=== PATIENT | male | born 1965 | race African-American/Black ===

== ENCOUNTER 2016-08-13 14:13 | Observation (INO) | payer BC, OTHER ==
[2016-08-13] MEDS ORDERED: ONDANSETRON *ODT* 4 MG TABLET SL ONE (15:11)
[2016-08-13] MEDS ORDERED: HYDROmorphone HCL CARPU-JECT 1 MG/1 ML DISP.SYRIN IVPUSH ONE (15:11)
[2016-08-13] MEDS ORDERED: HYDROmorphone HCL CARPU-JECT 2 MG/1 ML DISP.SYRIN IVPUSH ONE ×2 (15:15→16:43)
[2016-08-13] MEDS ORDERED: ONDANSETRON 8 MG TABLET (FP) PO ONE (15:24)
[2016-08-13] MEDS ORDERED: HYDROmorphone HCL CARPU-JECT 2 MG/1 ML DISP.SYRIN ONE ×2 (15:24→16:56)
[2016-08-13 15:36] LABS: BASOPHIL 0.4 % (0-2.0); EOSINOPHIL 1.5 % (0-4.5); MCH 28.1 pg (25.7-33.7); MCHC 32.9 g/dl (32.0-35.9); MEAN CELL VOLUME 85.5 fl (80-96); MEAN PLT VOLUME 9.2 fl (7.5-11.1); NEUTROPHILS 45.2 % (42.8-82.8); PLATELET COUNT 214 K/MM3 (134-434); RDW 14.2 % (11.9-15.9); WHITE BLOOD COUNT 5.7 K/mm3 (4.0-10.0)
[2016-08-13 15:47] LABS: INR 1.18 (0.82-1.09)
--- NOTE | 2016-08-13 15:50 | PDOC ---
History of Present Illness - General Chief Complaint: Pain Stated Complaint: PAIN Time Seen by Provider: 08/13/16 14:56 - History of Present Illness Initial Comments: 08/13/16 16:46 CHIEF COMPLAINT: pain s/p hernia repair HISTORY OF PRESENT ILLNESS: 51 yo M with PMH diverticulitis, CAD, HTN and HLD, s /p umbilical and inguinal hernia repair presents ED with 10/10 pain to R groin. Patient states he had his surgery done last year at [facility] Dr. Recio and 2-3 weeks ago he started feeling the pain but was able to relieve the pain with Tylenol or Motrin. He reports seeing his PCP MD Kilgore on 5 days ago and was referred to outpatient surgery with MD Lee but has not been able to get an appointment. He states that now the pain is unbearable and he cannot touch it. He reports nausea "but I can't get myself to throw it up." No recent travel or sick contacts. PAST MEDICAL HISTORY: Denies past medical history FAMILY HISTORY: Denies SOCIAL HISTORY:Denies tobacco, alcohol, illicit drug use. SURGICAL HISTORY: Denies ALLERGIES: Reglan REVIEW OF SYSTEMS General/Constitutional: Denies fever or chills. Denies weakness, weight change. HEENT: Denies change in vision. Denies ear pain or discharge. Denies sore throat. Cardiovascular: Denies chest pain or shortness of breath. Respiratory: Denies cough, wheezing, or hemoptysis. Gastrointestinal: Denies nausea, vomiting, diarrhea or constipation. Denies rectal bleeding. Genitourinary: Pain to R groin. Denies dysuria, frequency, or change in urination. Musculoskeletal: Denies joint or muscle swelling or pain. Denies neck or back pain. Skin and breasts: Denies rash or easy bruising. PHYSICAL EXAM General Appearance: Uncomfortable-appearing, appropriately dressed. . HEENT: EOMI, PERRLA, normal ENT inspection, normal voice, TMs normal, pharynx normal. No conjunctival pallor. No photophobia, scleral icterus. Respiratory/Chest: Lungs CTAB. Cardiovascular: RRR. S1, S2. Vascular Pulses: Dorsalis-Pedis (R): 2+, Dorsalis-Pedis (L): 2+ Gastrointestinal/Abdominal: Distended abdomen with marked diffuse tenderness. Genitourinary: Marked tenderness to R groin and scrotum. No induration, erythema. Cremasteric reflex intact. Lymphatic: No adenopathy, tenderness. Musculoskeletal/Extremities: Normal inspection. FROM of all extremities, normal capillary refill. Pelvis Stable. No CVA tenderness. No tenderness to extremities, pedal edema, swelling, erythema or deformity. Integumentary: Appropriate color, dry, warm. 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 Fully oriented, alert. Appropriate mood/affect. Motor strength 5/5. No appreciable EOM palsy, facial droop or sensory deficit. 08/13/16 16:47 08/13/16 17:55 Past History - Past Medical History Allergies/Adverse Reactions: Allergies Allergy/AdvReac Type Severity Reaction Status Date / Time metoclopramide HCl Allergy Mild Verified 08/13/16 14:20 [From [facility]] Home Medications: Ambulatory Orders Atorvastatin Ca [Lipitor] 40 mg PO HS 08/24/14 Hydrochlorothiazide [Hctz -] 25 mg PO DAILY 08/24/14 Omeprazole [Prilosec] 40 mg PO DAILY 08/24/14 Oxycodone HCl/Acetaminophen [Percocet 7.5-325 mg Tablet] 1 - 2 tab PO Q4H Propranolol HCl [Inderal Xl] 80 mg PO HS 08/24/14 Telmisartan 80 mg PO DAILY 08/14/16 Acetaminophen [Tylenol .Regular Strength -] 325 mg PO Q4H PRN #0 tablet Aspirin [ASA -] 81 mg PO DAILY tab.chew 08/15/16 Anemia: No Asthma: No Cancer: No Cardiac Disorders: Yes (CAD) CVA: No COPD: No CHF: No Dementia: No Diabetes: No GI Disorders: Yes (diverticulitis) Disorders: No HTN: Yes Hypercholesterolemia: Yes Liver Disease: No Suicide Attempt (Hx): No Seizures: No Thyroid Disease: No - Surgical History Abdominal Surgery: Yes (COLON RESECTION) Appendectomy: Yes - Immunization History Td Vaccination: Yes - Psycho/Social/Smoking Cessation Hx Anxiety: No Suicidal Ideation: No Smoking Status: No Smoking History: Never smoked Have you smoked in the past 12 months: No Number of Cigarettes Smoked Daily: 0 Information on smoking cessation initiated: No Hx Alcohol Use: No Drug/Substance Use Hx: No Substance Use Type: None Hx Substance Use Treatment: No *Physical Exam - Vital Signs Last Vital Signs Temp Pulse Resp BP Pulse Ox 98.3 F 96 H 18 190/124 100 08/13/16 14:20 08/13/16 14:20 08/13/16 14:20 08/13/16 14:20 08/13/16 14:20 ED Treatment Course - LABORATORY CBC & Chemistry Diagram: 08/14/16 06:48 08/14/16 06:48 - RADIOLOGY Radiology Studies Ordered: Category Date Time Status ABDOMEN & PELVIS CT WITH CONTR [CT] Stat CT Scan 08/13/16 15:10 Ordered Medical Decision Making - Medical Decision Making 08/13/16 16:51 51 yo M with PMH diverticulitis, CAD, HTN and HLD, s/p umbilical and inguinal hernia repair presents ED with 10/10 pain to R groin. Patient seen and evaluated by attending MD Romeo. Concern for incarcerated hernia. -CBC, CMP, PT/INR -Abdomen & Pelvis CT with contrast Labs unremarkable. Awaiting CT. 08/13/16 18:54 Case discussed in detail with oncoming emergency provider including history, physical exam and ancillary studies. In brief, this patient is being seen in the ED for a chief complaint of: I have completed the initial assessment interview note and have ordered the following labs: CBC, CMP, PT/INR I have reviewed the following results: labs Pending results: CT Please call the PCP: Jame Plan for disposition as follows: pending, likely admit Oncoming NPA Serafin has assumed care for the patient and will complete the evaluation and treatment. *DC/Admit/Observation/Transfer Diagnosis at time of Disposition: Abdominal pain Qualifiers: Abdominal location: periumbilical Qualified Code(s): R10.33 - Periumbilical pain - Discharge Dispostion Disposition: HOME Condition at time of disposition: Improved
[2016-08-13 16:07] LABS: ALBUMIN 3.8 g/dl (3.4-5.0); ALK PHOS 74 U/L (45-117); ANION GAP 10 (8-16); BILIRUBIN,TOTAL 0.2 mg/dL (0.2-1.0); CALCIUM 9.8 mg/dL (8.5-10.1); CO2 28 mmol/L (21-32); COCKROFT - GAULT 113.39; CREATININE 1.2 mg/dL (0.7-1.3); GLUCOSE,RANDOM 109 mg/dL (74-106); SGOT/AST 20 U/L (15-37); SGPT/ALT 46 U/L (12-78); TOT PROT 8.1 g/dl (6.4-8.2)
--- NOTE | 2016-08-13 19:50 | PDOC ---
*Physical Exam - Vital Signs Last Vital Signs Temp Pulse Resp BP Pulse Ox 98.3 F 82 19 150/105 95 08/13/16 14:20 08/13/16 18:42 08/13/16 18:42 08/13/16 18:42 08/13/16 18:42 ED Treatment Course - LABORATORY CBC & Chemistry Diagram: 08/13/16 15:15 08/13/16 15:21 - ADDITIONAL ORDERS Additional order review: Laboratory Results 08/13/16 08/13/16 15:21 15:21 INR 1.18 H Sodium 142 Potassium 3.8 Chloride 104 Carbon Dioxide 28 Anion Gap 10 BUN 16 D Creatinine 1.2 Creat Clearance w eGFR > 60 Random Glucose 109 H Calcium 9.8 Total Bilirubin 0.2 AST 20 ALT 46 D Alkaline Phosphatase 74 Total Protein 8.1 Albumin 3.8 08/13/16 15:15 RBC 5.26 MCV 85.5 MCHC 32.9 RDW 14.2 MPV 9.2 Neutrophils % 45.2 Lymphocytes % 42.5 H Monocytes % 10.4 H Eosinophils % 1.5 Basophils % 0.4 - Medications Given in the ED: ED Medications Discontinued Medications Generic Name Dose Route Start Last Admin Trade Name Freq PRN Reason Stop Dose Admin Hydromorphone HCl 0.5 mg 08/13/16 15:11 08/13/16 15:45 Dilaudid Injection - IVPUSH 08/13/16 15:12 Not Given ONCE ONE Hydromorphone HCl 2 mg 08/13/16 15:15 08/13/16 15:30 Dilaudid Injection - IVPUSH 08/13/16 15:16 2 mg ONCE ONE Administration Hydromorphone HCl 2 mg 08/13/16 16:43 08/13/16 17:15 Dilaudid Injection - IVPUSH 08/13/16 16:44 2 mg ONCE ONE Administration Ondansetron HCl 8 mg 08/13/16 15:11 08/13/16 15:35 Zofran Odt - SL 08/13/16 15:12 8 mg ONCE ONE Administration Progress Note - Progress Note Progress Note: 1945hrs: Called Dr Rebecca Kilgore /pt's PMD [phone]/ Dr. Barton is covering 1954hrs: Dr. Mccracken/covering Dr. Barton... will admit 2002hrs: Spoke to Dr. Parmar/surgery. Pt is to call the office on Tuesday. This was signed out from [facility] Rose Marie Jimenes This is a 51-year-old male who presents to the emergency department complaining of periumbilical and right groin discomfort 3 weeks. Patient states the pain has increased over the past 5 days. Pain is described as 10/10 sharp nonradiating intermittent discomfort. The pain is exacerbated when coughing and bearing down. The pain is alleviated minimally at rest. Patient denies any fever , nausea/vomiting, fever/chills, flank pains, chest pain, shortness of breath, bladder or bowel dysfunction's. *DC/Admit/Observation/Transfer Diagnosis at time of Disposition: Abdominal pain Qualifiers: Abdominal location: periumbilical Qualified Code(s): R10.33 - Periumbilical pain - Discharge Dispostion Condition at time of disposition: Stable Admit: Yes - Referrals Referrals: John Kilgore MD [Primary Care Provider] -
[2016-08-13] MEDS ORDERED: morphine CARPU-JECT 2 MG/1 ML DISP.SYRIN IVPUSH ONE (21:45)
[2016-08-13] MEDS ORDERED: morphine CARPU-JECT 2 MG/1 ML DISP.SYRIN ONE (22:18)
[2016-08-13] MEDS ORDERED: ONDANSETRON 4 MG/2 ML VIAL IVPB PRN (23:41)
[2016-08-13] MEDS ORDERED: [UNRECOGNIZED DRUG - OTHER] PO SCH (23:45)
[2016-08-13] MEDS ORDERED: ACETAMINOPHEN PO SCH (23:45)
[2016-08-13] MEDS ORDERED: D5-1/2NS+10 MEQ KCL - 1,000 ML IV SCH (23:45)
[2016-08-13] MEDS ORDERED: OXYCODONE HCL PO SCH (23:45)
[2016-08-14] MEDS: HYDROmorphone HCL CARPU-JECT 1 MG/1 ML DISP.SYRIN IVPB PRN ×5 (00:10→23:05)
[2016-08-14 08:38] LABS: BASOPHIL 0.5 % (0-2.0); EOSINOPHIL 1.2 % (0-4.5); MCH 28.4 pg (25.7-33.7); MCHC 33.2 g/dl (32.0-35.9); MEAN CELL VOLUME 85.5 fl (80-96); MEAN PLT VOLUME 8.8 fl (7.5-11.1); PLATELET COUNT 202 K/MM3 (134-434); WHITE BLOOD COUNT 6.1 K/mm3 (4.0-10.0)
[2016-08-14 09:01] LABS: ALBUMIN 3.4 g/dl (3.4-5.0); ANION GAP 7 (8-16); CALCIUM 9.3 mg/dL (8.5-10.1); CO2 31 mmol/L (21-32); COCKROFT - GAULT 2.97; GLUCOSE,RANDOM 102 mg/dL (74-106); SGOT/AST 19 U/L (15-37); SGPT/ALT 38 U/L (12-78)
[2016-08-14 09:04] LABS: ALK PHOS 64 U/L (45-117); BILIRUBIN,TOTAL 0.2 mg/dL (0.2-1.0); TOT PROT 7.1 g/dl (6.4-8.2)
[2016-08-14] MEDS: ASPIRIN 81 MG CHEWABLE TABLETS PO SCH (09:24)
[2016-08-14] MEDS: oxyCODONE HCL 5 MG TABLET PO PRN ×2 (09:24→18:54)
[2016-08-14] MEDS: HYDROCHLOROTHIAZIDE 25 MG TABLET (FP) PO SCH (09:25)
[2016-08-14] MEDS: ACETAMINOPHEN 325 MG TABLET (FP) PO PRN ×2 (09:25→18:54)
[2016-08-14] MEDS: PANTOPRAZOLE 40 MG TABLET (FP) PO SCH (09:25)
[2016-08-14] MEDS ORDERED: TELMISARTAN 80 MG PO SCH (14:30)
[2016-08-14] MEDS: VALSARTAN 160 MG TABLET (UD) PO SCH (16:55)
--- NOTE | 2016-08-14 17:37 | HP ---
Admitting History and Physical - Admission Chief Complaint: Rt Groin Pain while coughing for past 3 wks History of Present Illness: 51 yrs old pleasant man obese H/o HTN, GERD, Dyslipedemia, Diverticulitis s/p partial Colon resection, and Rt sided Hernia repair around 6 months ago present with Rt lower quadrant pain radiates to Rt scrotum , 8/10, episodic increases with coughing and straining, started after a severe bout of coughing, remained cont, patient contacted operating surgeon but couldn't get a an appointment, on the day of admission pain worsened so came to Ed for evaluation, patient denies any fever, chills, nausea, vomiting dysuria, constipation, diarrhea or obstupation, Ct abd in the Ed shows post Op Rt Inguinal hernia, no obstruction or acute abdominal pathology, considering ongoing pain admitted for observation , today patient feels improved able pss flatus, last BM was yesterday. 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 [employer] History of Recent Travel: No Home Medications - Allergies Allergies/Adverse Reactions: Allergies Allergy/AdvReac Type Severity Reaction Status Date / Time metoclopramide HCl Allergy Mild Verified 08/13/16 14:20 [From Reglan] - Home Medications Home Medications: Ambulatory Orders Aspirin [ASA -] 81 mg PO DAILY 08/24/14 Atorvastatin Ca [Lipitor] 40 mg PO HS 08/24/14 Hydrochlorothiazide [Hctz -] 25 mg PO DAILY 08/24/14 Omeprazole [Prilosec] 40 mg PO DAILY 08/24/14 Oxycodone HCl/Acetaminophen [Percocet 7.5-325 mg Tablet] 1 - 2 tab PO Q4H Propranolol HCl [Inderal Xl] 80 mg PO HS 08/24/14 Telmisartan 80 mg PO DAILY 08/14/16 Family Disease History - Family Disease History Family Disease History: Other: Mother (diverticulitis, HTN) Review of Systems - Review of Systems Constitutional: reports: Malaise Eyes: reports: No Symptoms HENT: reports: No Symptoms Neck: reports: No Symptoms Cardiovascular: reports: No Symptoms. denies: Chest Pain, Edema, Palpitations Respiratory: reports: No Symptoms. denies: Cough, Exercise Intolerance Gastrointestinal: reports: Abdominal Pain, Nausea. denies: Constipation, Diarrhea, Rectal Bleeding Genitourinary: reports: Testicular Pain. denies: Dysuria, Flank Pain Musculoskeletal: reports: No Symptoms. denies: Back Pain Neurological: reports: No Symptoms. denies: Change in Speech, Confusion Endocrine: reports: No Symptoms. denies: Excessive Sweating, Flushing Hematology/Lymphatic: reports: No Symptoms Psychiatric: reports: No Symptoms. denies: Anxiety Pain Intensity: 8 Physical Examination Vital Signs: Vital Signs Temperature 98.4 F 08/14/16 14:38 Pulse Rate 70 08/14/16 14:38 Respiratory Rate 18 08/14/16 14:38 Blood Pressure 149/86 08/14/16 14:38 O2 Sat by Pulse Oximetry (%) 96 08/14/16 15:20 Findings/Remarks: P Exam; Middle aged man not in acute distress HEENT: MM moist, no anemia, PERRLA EOMI NECK; No JVD , no Bruit, trachea central CHEST: Non tender, CTA B/L CVS; S1S2 R no m/g/r ABD: Obese, no obvious distention, tender Rt Inguinal area extended along Rt Spermatic cord till scrotal sac and testes, normally placed testes in scrotum, no scrotal swelling or inflammation. EXT: No edema feet, no calf tenderness, Pulses +2 B/L LE WHEEL SETTER: AOx3 non focal, normal reflexes no motor sensory deficit. DERM: Normal Psych; Emotionally stable denies any anxiety or Depression. Labs: CBC, BMP 08/14/16 06:48 08/14/16 06:48 Imaging - Results Cat Scan: Report Reviewed (Abd and Pelvis; Post Op changes No acute chnages, no obstruction No acute abdominal pr Pelvic finding) EKG: Image Reviewed Problem List - Problems (1) Abdominal pain Assessment/Plan: of unknown etiology Ct abdomen shows no acute pathology, considering tenderneess along spermatic cord will order ultrasound scrotum and groin, pain control, surgery consult is called from the ED Code(s): R10.9 - UNSPECIFIED ABDOMINAL PAIN Qualifiers: Abdominal location: periumbilical Qualified Code(s): R10.33 - Periumbilical pain (2) HTN (hypertension) Assessment/Plan: Well controlled Cont home meds, HCTZ 12.5 mg and Telmisartan 80 mg daily. Code(s): I10 - ESSENTIAL (PRIMARY) HYPERTENSION (3) Hyperlipidemia Assessment/Plan: Cont Lipitor F/U Lipid panel as pout patient Code(s): E78.5 - HYPERLIPIDEMIA, UNSPECIFIED (4) Diverticulosis Assessment/Plan: No active issue Code(s): K57.90 - DVRTCLOS OF INTEST, PART UNSP, W/O PERF OR ABSCESS W/O BLEED (5) GERD (gastroesophageal reflux disease) Assessment/Plan: on PPI Code(s): K21.9 - GASTRO-ESOPHAGEAL REFLUX DISEASE WITHOUT ESOPHAGITIS
[2016-08-14] MEDS ORDERED: ATORVASTATIN CA 40 MG TABLET (FP) PO SCH (22:00)
[2016-08-14] MEDS ORDERED: PT OWN MED DRAWER 7, Y5N ONE (22:45)
[2016-08-15] MEDS ORDERED: PT OWN MED DRAWER 7, Y5N ONE (09:11)
[2016-08-15] MEDS: ASPIRIN 81 MG CHEWABLE TABLETS PO SCH (09:13)
[2016-08-15] MEDS: HYDROCHLOROTHIAZIDE 25 MG TABLET (FP) PO SCH (09:14)
[2016-08-15] MEDS: VALSARTAN 160 MG TABLET (UD) PO SCH (09:15)
[2016-08-15] MEDS: PANTOPRAZOLE 40 MG TABLET (FP) PO SCH (09:15)
[2016-08-15] MEDS: HYDROmorphone HCL CARPU-JECT 1 MG/1 ML DISP.SYRIN IVPB PRN (09:16)
[2016-08-15 11:56] VITALS: BP 152/82; PULSE 66; TEMP 98.1
--- NOTE | 2016-08-15 12:24 | DS ---
Physical Examination Vital Signs: Vital Signs Temperature 98.1 F 08/15/16 09:10 Pulse Rate 66 08/15/16 09:10 Respiratory Rate 16 08/15/16 09:10 Blood Pressure 152/82 08/15/16 09:10 O2 Sat by Pulse Oximetry (%) 97 08/15/16 07:00 Findings/Remarks: 51 yrs old man with H/O HTN, Obesity, Diverticulosis, Rt Inguinal and Ventral hernia repair admitted with 3 wks H/O RT inguinal pain radiates to Rt scrotum are no clinical sign of obstruction, CBc, BMP, CT abdomen are unremarkable, Scrotal ultrasound smal hydrocoele no torsion, symptoms improved, tolerating PO , passing flatus , patient has regular BM this am. Patient has all meds at home no need for prescription. Patient will F/u with Dr Kilgore. Dr. Vivek Lee on Tuesday ED arrange the appointment. Constitutional: Yes: Well Nourished, No Distress, Calm Eyes: Yes: WNL, Conjunctiva Clear, EOM Intact HENT: Yes: WNL, Atraumatic, Normocephalic Neck: Yes: WNL, Supple, Trachea Midline Cardiovascular: Yes: WNL, Regular Rate and Rhythm Respiratory: Yes: WNL, Regular, CTA Bilaterally Gastrointestinal: Yes: WNL, Normal Bowel Sounds Musculoskeletal: Yes: WNL Extremities: Yes: WNL Edema: No Integumentary: Yes: WNL Neurological: Yes: WNL, Alert, Oriented ...Motor Strength: WNL Psychiatric: Yes: WNL Labs: CBC, BMP 08/14/16 06:48 08/14/16 06:48 Discharge Summary Reason For Visit: ABDOMINAL PAIN All Active Problems Abdominal pain (Acute) Diverticulosis (Acute) GERD (gastroesophageal reflux disease) (Acute) HTN (hypertension) (Acute) Hyperlipidemia (Acute) Hospital Course: Patient pain improved tolerating PO , CT abd and Scrotal ultrasound no acute findings. Condition: Improved - Instructions Diet, Activity, Other Instructions: As advised low salt low cholesterol as tolerated Referrals: John Kilgore MD [Primary Care Provider] - 07/17/17 Vivek Lee MD [Staff Physician] - 08/16/16 Disposition: HOME - Home Medications Comprehensive Discharge Medication List: Ambulatory Orders Aspirin [ASA -] 81 mg PO DAILY 08/24/14 Atorvastatin Ca [Lipitor] 40 mg PO HS 08/24/14 Hydrochlorothiazide [Hctz -] 25 mg PO DAILY 08/24/14 Omeprazole [Prilosec] 40 mg PO DAILY 08/24/14 Oxycodone HCl/Acetaminophen [Percocet 7.5-325 mg Tablet] 1 - 2 tab PO Q4H Propranolol HCl [Inderal Xl] 80 mg PO HS 08/24/14 Telmisartan 80 mg PO DAILY 08/14/16 Acetaminophen [Tylenol .Regular Strength -] 325 mg PO Q4H PRN #0 tablet Aspirin [ASA -] 81 mg PO DAILY tab.chew 08/15/16
== END 2016-08-15 12:59 | disposition home or self-care (01) ==
LOC: JER 14:13 → JERBED 19:56 → J5S 23:50
PROVIDERS: ADMIT Internal Medicine; ATTEND Internal Medicine
PROC: 3E033NZ Introduction of Analgesics, Hypnotics, Sedatives into Peripheral Vein, Percutaneous Approach (ICD-10-PCS; principal; 2016-08-13)
PROC: 3E0337Z Introduction of Electrolytic and Water Balance Substance into Peripheral Vein, Percutaneous Approach (ICD-10-PCS; 2016-08-13)
PROC: 3E033GC Introduction of Other Therapeutic Substance into Peripheral Vein, Percutaneous Approach (ICD-10-PCS; 2016-08-13)
DX: K57.30 Diverticulosis of large intestine without perforation or abscess without bleeding (principal); R10.33 Periumbilical pain; I25.10 Atherosclerotic heart disease of native coronary artery without angina pectoris; I10 Essential (primary) hypertension; E78.5 Hyperlipidemia, unspecified; K21.9 Gastro-esophageal reflux disease without esophagitis; E66.9 Obesity, unspecified; Z87.19 Personal history of other diseases of the digestive system; Z79.82 Long term (current) use of aspirin; Z98.0 Intestinal bypass and anastomosis status; Z88.8 Allergy status to other drugs, medicaments and biological substances
CPT/HCPCS: 36415; 74177-TC; 76870-TC; 80053; 85025; 85610; 99285-25; G0378

== ENCOUNTER 2017-08-11 10:08 | Inpatient (IN) | payer OTHER ==
[2017-08-10 11:44] VITALS: BMI 42.9
--- NOTE | 2017-08-11 12:30 | HP ---
History & Physical Update - History History: No Change - Physical Physical: No Change - Assessment Assessment: No Change - Plan Plan: No Change (Laparoscopic possible open vertical sleeve gastrectomy, possible liver biopsy, EGD)
[2017-08-11] MEDS ORDERED: ROPIVACAINE HCL 0.5% 30ML VIAL ONE (15:24)
[2017-08-11] MEDS ORDERED: MIDAZOLAM HCL 2 MG/2 ML SINGLE DOSE VIAL ONE ×2 (15:25)
[2017-08-11] MEDS ORDERED: BUPIVACAINE HCL/PF 0.5% (5MG/ML) 10 ML VIAL ONE (15:43)
[2017-08-11] MEDS ORDERED: PROPOFOL 20 ML ONE ×2 (16:12)
[2017-08-11] MEDS ORDERED: fentaNYL CITRATE 250 MCG/5 ML VIAL ONE (16:12)
[2017-08-11] MEDS ORDERED: ROCURONIUM BROMIDE 50 MG/5 ML VIAL ONE (16:12)
[2017-08-11] MEDS ORDERED: ceFAZolin SODIUM 1 GM VIAL IVPB ONE (16:22)
[2017-08-11] MEDS ORDERED: ceFAZolin SODIUM 1 GM VIAL ONE (16:22)
[2017-08-11] MEDS ORDERED: DEXAMETHASONE SOD PHOSPHATE 4 MG/1 ML VIAL ONE (16:48)
[2017-08-11] MEDS ORDERED: GLYCOPYRROLATE 0.2 MG/1 ML VIAL ONE (16:54)
[2017-08-11] MEDS ORDERED: NEOSTIGMINE METHYLSULFATE 0.5 MG/ML - 10 ML MDV ONE ×2 (17:11→17:27)
[2017-08-11] MEDS ORDERED: hydrALAZINE HCL 20 MG/ML VIAL ONE (17:31)
--- NOTE | 2017-08-11 17:34 | OP ---
Operative Note - Note: Operative Date: 08/11/17 Pre-Operative Diagnosis: Morbid obesity. BMI 42.9. Hypercholesterolemia. Hypertension Operation: Diagnostic laparoscopy. laparoscopic lysis of adhesions. Laparoscopic vertical sleeve gastrectomy. Laparoscopic wedge liver biopsy. EGD Post-Operative Diagnosis: Other (Same as preop and hepatomegally) Surgeon: Vivek Lee Rn Clinical: Lit Sarmiento Anesthesia: General Specimens Removed: Greater curvature of stomach. Wedge liver biopsy Estimated Blood Loss (mls): 30 Drains & Tubes with Location: 36 Fr Bougie Operative Report Dictated: Yes
[2017-08-11] MEDS ORDERED: SODIUM CHLORIDE 1,000 ML IV SCH (17:45)
[2017-08-11] MEDS ORDERED: oxyCODONE HCL 5 MG TABLET PO PRN (17:48)
[2017-08-11] MEDS ORDERED: ONDANSETRON 4 MG/2 ML VIAL IVPUSH PRN (17:48)
[2017-08-11] MEDS ORDERED: ACETAMINOPHEN INJECTION 100 ML IVPB ONE (17:55)
[2017-08-11] MEDS ORDERED: METOCLOPRAMIDE HCL INJECTION 10 MG/2 ML VIAL ONE (17:55)
[2017-08-11] MEDS ORDERED: LACTATED RINGERS SOLUTION 1,000 ML IV SCH (18:00)
[2017-08-11] MEDS: ACETAMINOPHEN 1000 MG/100 ML VIAL (NON FORMULARY) IVPB SCH ×2 (18:15→23:08)
[2017-08-11] MEDS: METOCLOPRAMIDE HCL INJECTION 10 MG/2 ML VIAL IVPUSH SCH ×2 (18:25→21:26)
[2017-08-11 19:10] LABS: HEMATOCRIT 44.7 % (35.4-49); HEMOGLOBIN 15.2 GM/dL (11.7-16.9); MCH 29.7 pg (25.7-33.7); MCHC 34.1 g/dl (32.0-35.9); MEAN CELL VOLUME 87.2 fl (80-96); MEAN PLT VOLUME 9.4 fl (7.5-11.1); PLATELET COUNT 202 K/MM3 (134-434); RBC 5.13 M/mm3 (4.00-5.60); RDW 15.1 % (11.9-15.9); WHITE BLOOD COUNT 6.7 K/mm3 (4.0-10.0)
[2017-08-11 19:40] LABS: ALBUMIN 3.8 g/dl (3.4-5.0); ALK PHOS 76 U/L (45-117); ANION GAP 9 (8-16); BILIRUBIN,TOTAL 0.3 mg/dL (0.2-1.0); BLOOD UREA NITROGEN 20 mg/dL (7-18); CALCIUM 9.1 mg/dL (8.5-10.1); CHLORIDE 103 mmol/L (98-107); CO2 26 mmol/L (21-32); CREATININE 1.4 mg/dL (0.7-1.3); GLUCOSE,RANDOM 105 mg/dL (74-106); POTASSIUM 3.8 mmol/L (3.5-5.1); SGOT/AST 92 U/L (15-37); SGPT/ALT 145 U/L (12-78); SODIUM 138 mmol/L (136-145)
--- NOTE | 2017-08-11 19:41 | SPEC ---
DATE OF OPERATION: 08/11/2017 SURGEON: Vivek Lee M.D. MOVIE STUNT PERFORMER: Juanito Bang PREOPERATIVE DIAGNOSIS: 1. Morbid obesity. 2. Body mass index of 42.9. 3. Hypertension. 4. Hypercholesterolemia. 5. Diverticulitis. 6. Hernia. POSTOPERATIVE DIAGNOSIS: 1. Morbid obesity. 2. Body mass index of 42.9. 3. Hypertension. 4. Hypercholesterolemia. 5. Diverticulitis. 6. Hernia. 7. Splenomegaly. OPERATIVE PROCEDURE: 1. Diagnostic laparoscopy. 2. Laparoscopic lysis of adhesions. 3. Laparoscopic vertical sleeve gastrectomy. 4. Laparoscopic wedge liver biopsy. 5. Esophagogastroduodenoscopy. SPECIMENS: 1. Greater curvature of the stomach. 2. Wedge liver biopsy. ESTIMATED BLOOD LOSS: 30 mL. DRAINS: None. ANESTHESIA: GT. REASON FOR THE PROCEDURE: This is a 52-year-old gentleman who presented to the office for weight loss options. After describing different options, he did decide to proceed with laparoscopic vertical sleeve gastrectomy, possible open, possible liver biopsy and upper endoscopy. RISKS AND BENEFITS: After describing the different options for weight loss management, the patient decided to proceed with a laparoscopic, possible open vertical sleeve gastrectomy. The patient was seen by the respective subspecialties and cleared for surgery. The risks and benefits of the procedure were explained. These included bleeding, infection, hernia, [place], DVT, PE, injury to surrounding structures including the liver, colon, bowel, spleen, esophagus, vessel injury, nerve injury, weight regain, gastric leak, staple line leak, sleeve leak, obstruction, vitamin deficiency, hair loss and as some of the possible complications. The patient understood and signed informed consent. DESCRIPTION OF PROCEDURE: The patient was placed supine on the operating room table. The patient underwent general endotracheal intubation. A Hampton catheter was inserted. The arms were brought out at 90 degrees and secured. A footboard was placed and the legs were secured laterally with padding. The abdomen was prepped and draped in the usual sterile fashion. A timeout was performed. An incision was made in the left upper quadrant and a Veress needle inserted. Pneumoperitoneum was established. Subsequently, the Veress needle was removed and a 12-mm trocar was placed. The laparoscopic camera was then inserted and inspection of the abdominal cavity was performed. An incision was then made in the supraumbilical area and a 15-mm trocar was placed under direct visualization. A 5-mm trocar was then placed in the right upper quadrant and a 5-mm trocar was placed below the left subcostal margin. A stab wound was made in the subxiphoid area and a Julissa clamp inserted and removed to dilate the tract. A Missy liver retractor was inserted. The post was secured at the bedside by the nursing staff. The patient was placed in steep reverse Trendelenburg position and the Missy liver retractor was used to secure the liver towards the anterior abdominal wall. The pylorus was identified and 6 cm proximal to it, the lesser sac was entered using the LigaSure device. All lateral attachments to the greater curvature of the stomach, including the short gastric vessels, were ligated using the LigaSure device toward the gastrosplenic and gastrophrenic ligaments. Once this was done in its entirety, it was confirmed that all tubes within the nasal or oropharyngeal cavity, including a temperature probe, was removed by Anesthesia. The bougie was then inserted by Anesthesia. Transection of the stomach was then begun staying adjacent to the bougie but away from the angularis. Transection of the stomach was performed near the portion of the stomach where the lesser sac was entered. Two laparoscopic Endo-RCICI black demarco were used at this location. Laparoscopic Endo RICCI purple staple loads were then used for the remainder of the transection until the greater curvature of the stomach was fully transected. This was done staying close to the bougie. Care was taken to stay away from the angle of His cephalad. The staple line was then inspected. Hemostasis was identified. A leak test was then performed. It was clamped distally to the staple line. Irrigation solution was placed in the left upper quadrant and air was insufflated by Anesthesia into the sleeve. No leaks were identified. No obstruction was identified. This was done through the entirety of the staple line. At this point, the irrigation solution was suctioned and again, hemostasis was noted. A wedge liver biopsy was then performed. The left lobe of the liver was identified and a portion of the edge was grasped. Using electrocautery, a wedge of the liver was excised. This was removed and sent off the field as specimen. Hemostasis at the site of the wedge liver biopsy was attained using electrocautery. The 15-mm supraumbilical trocar was then removed and the greater curvature specimen removed from the site using a sponge stick omer. The specimen was inspected and a Veress needle inserted. The specimen insufflated adequately and no leak was identified. The staple line was noted to be intact. A Teja-Benito device was then used to temporarily close the fascia with a 0 Vicryl suture at the site. The 15-mm trocar was then reinserted and the 12-mm trocar in the left upper quadrant was removed. The fascia at this site was then closed using the Teja-Benito device with a 0 Vicryl suture. Again, hemostasis was noted. The Missy liver retractor was then removed under direct visualization. Pneumoperitoneum was desufflated and the fascial sutures were secured. Hemostasis was noted at all incision sites and Marcaine was injected at all incision sites. All incision sites were closed using 4-0 Biosyn. Sterile dressings were applied. The patient tolerated the procedure well and was transferred to the recovery room in stable condition with the Hampton catheter intact. The patient was transferred to telemetry for further monitoring. ADDENDUM: In addition, at the beginning of the case, it was noted that there were dense intraabdominal adhesions from a prior midline hernia repair with mesh. These adhesions were carefully taken down with a combination of sharp dissection and ligature. This took extensive dissection. At the end, hemostasis was noted, and no injury was noted. The remainder of the case proceeded as described above. In addition, at the end of the case, an upper endoscopy was performed. The endoscope was placed in this patient's mouth, and the entirety of the esophagus, gastroesophageal junction, gastric staple line, and gastric was inspected, hemostasis was noted, no leak or obstruction was noted. Patient tolerated the procedure well. Transferred to recovery room in stable condition. [place] [id number]
[2017-08-11] MEDS: FAMOTIDINE 20 MG/50 ML IVPB 20 MG/50 ML MG IVPB SCH (22:14)
[2017-08-11] MEDS: ONDANSETRON 4 MG/2 ML VIAL IVPUSH SCH (22:14)
[2017-08-11] MEDS: morphine SULFATE 4 MG/ML VIAL IVPUSH PRN (22:15)
[2017-08-11] MEDS: ENOXAPARIN NA (PORCINE) 40 MG/0.4 ML DISP.SYRIN SQ SCH (22:15)
[2017-08-12] MEDS: ONDANSETRON 4 MG/2 ML VIAL IVPUSH SCH ×6 (02:07→21:24)
[2017-08-12] MEDS: METOCLOPRAMIDE HCL INJECTION 10 MG/2 ML VIAL IVPUSH SCH ×4 (02:41→21:18)
[2017-08-12] MEDS: morphine SULFATE 4 MG/ML VIAL IVPUSH PRN (03:38)
[2017-08-12] MEDS: ACETAMINOPHEN 1000 MG/100 ML VIAL (NON FORMULARY) IVPB SCH ×2 (05:54→12:24)
[2017-08-12 06:59] LABS: HEMATOCRIT 41.9 % (35.4-49); HEMOGLOBIN 14.5 GM/dL (11.7-16.9); MCH 29.7 pg (25.7-33.7); MCHC 34.7 g/dl (32.0-35.9); MEAN CELL VOLUME 85.8 fl (80-96); MEAN PLT VOLUME 9.2 fl (7.5-11.1); PLATELET COUNT 232 K/MM3 (134-434); RBC 4.88 M/mm3 (4.00-5.60)
--- NOTE | 2017-08-12 07:24 | SURG ---
Surgery Legal Document Specialist Note Legal Document Specialist: Lit Sarmiento PA-C Date of Service: 08/12/17 Diagnosis: Morbid obesity. BMI 42.9. Hypercholesterolemia. Hypertension Procedure: Laparoscopic vertical sleeve gastrectomy, wedge liver biopsy. Lysis of adhesions. EGD I was present for the entirety of the operative procedure. For further detail, please refer to operative report. Visit type - Case Type Case Type: Scheduled Admission - New patient This patient is new to me today: Yes Date on this admission: 08/12/17
[2017-08-12 07:43] LABS: ALBUMIN 3.4 g/dl (3.4-5.0); ANION GAP 5 (8-16); BLOOD UREA NITROGEN 18 mg/dL (7-18); CALCIUM 8.6 mg/dL (8.5-10.1); CHLORIDE 103 mmol/L (98-107); CO2 28 mmol/L (21-32); CREATININE 1.1 mg/dL (0.7-1.3); GLUCOSE,RANDOM 122 mg/dL (74-106); POTASSIUM 4.1 mmol/L (3.5-5.1); SGOT/AST 82 U/L (15-37); SGPT/ALT 131 U/L (12-78); SODIUM 136 mmol/L (136-145)
[2017-08-12 07:45] LABS: ALK PHOS 68 U/L (45-117); BILIRUBIN,TOTAL 0.4 mg/dL (0.2-1.0); TOT PROT 7.2 g/dl (6.4-8.2)
[2017-08-12] MEDS: FAMOTIDINE 20 MG/50 ML IVPB 20 MG/50 ML MG IVPB SCH ×2 (09:59→21:19)
[2017-08-12] MEDS: ENOXAPARIN NA (PORCINE) 40 MG/0.4 ML DISP.SYRIN SQ SCH ×2 (09:59→21:19)
--- NOTE | 2017-08-12 10:30 | PN ---
Progress Note (short form) - Note Progress Note: POD #1 - s/p laparoscopic sleeve gastrectomy under GA with bilateral TAP blocks. VSS. Pt. doing well, sitting up in chair. C/o some pain - pain meds as per sx. No apparent anesthetic complications noted. Continue current care.
[2017-08-12] MEDS ORDERED: oxyCODONE HCL 5 MG TABLET PO PRN (11:33)
--- NOTE | 2017-08-12 11:41 | CON.CARD ---
Cardiology Consult (text) - Consultation Consultation Note: cc: elective gastric sleeve hpi: 52 m hx htn, hld, here s/p elective gastric sleeve. Doing well post op. No cp, sob, palps, dizzy, loc, pnd, orthopnea, le edema. Mild surgical site pain. Sees me for cardio. pmh: per hpi psh: gastric sleeve social: no tob fam: no premature cad ros: per hpi; no nvd, fever, cough, gib, hematuria, dysuria, vision changes meds: Ambulatory Orders Atorvastatin Ca [Lipitor] 40 mg PO HS 08/24/14 Omeprazole [Prilosec] 40 mg PO BID 08/24/14 Propranolol HCl [Inderal Xl] 80 mg PO HS 08/24/14 Aspirin [ASA -] 81 mg PO DAILY tab.chew 08/15/16 Acetaminophen/Caffeine/Butalb [Fioricet -] 1 tablet PO PRN PRN 08/10/17 Aspirin/Acetaminophen/Caffeine [Excedrin Migraine Caplet] 1 each PO PRN PRN Telmisartan/Hydrochlorothiazid [Telmisartan-Hctz 80-25 mg Tab] 1 each PO DAILY 08/10/17 Famotidine [Pepcid] 20 mg PO BID #60 tablet 08/11/17 Oxycodone HCl/Acetaminophen [Percocet 5-325 mg Tablet] 1 - 2 tab PO Q6H #28 tab MDD 4 08/11/17 pe: Vital Signs Period Temp Pulse Resp BP Sys/Webster Pulse Ox Last 24 Hr 98.5 F-99.9 F 48-109 14-18 111-181/53-109 98-100 nad no jvd rrr s1s2 no mrg cta bl nl eff aaox3 no le e/c/c abd mild tender, nd pos bs no jaundice diaphoresis pos dp pt no carotid bruits Laboratory Last Values WBC 9.0 K/mm3 (4.0-10.0) D 08/12/17 05:00 RBC 4.88 M/mm3 (4.00-5.60) 08/12/17 05:00 Hgb 14.5 GM/dL (11.7-16.9) 08/12/17 05:00 Hct 41.9 % (35.4-49) 08/12/17 05:00 MCV 85.8 fl (80-96) 08/12/17 05:00 MCH 29.7 pg (25.7-33.7) 08/12/17 05:00 MCHC 34.7 g/dl (32.0-35.9) 08/12/17 05:00 RDW 15.0 % (11.9-15.9) 08/12/17 05:00 Plt Count 232 K/MM3 (134-434) 08/12/17 05:00 MPV 9.2 fl (7.5-11.1) 08/12/17 05:00 Sodium 136 mmol/L (136-145) 08/12/17 05:00 Potassium 4.1 mmol/L (3.5-5.1) 08/12/17 05:00 Chloride 103 mmol/L (98-107) 08/12/17 05:00 Carbon Dioxide 28 mmol/L (21-32) 08/12/17 05:00 Anion Gap 5 (8-16) L 08/12/17 05:00 BUN 18 mg/dL (7-18) 08/12/17 05:00 Creatinine 1.1 mg/dL (0.7-1.3) D 08/12/17 05:00 Creat Clearance w eGFR > 60 (>60) 08/12/17 05:00 Random Glucose 122 mg/dL (74-106) H 08/12/17 05:00 Calcium 8.6 mg/dL (8.5-10.1) 08/12/17 05:00 Total Bilirubin 0.4 mg/dL (0.2-1.0) D 08/12/17 05:00 AST 82 U/L (15-37) H 08/12/17 05:00 ALT 131 U/L (12-78) H 08/12/17 05:00 Alkaline Phosphatase 68 U/L (45-117) 08/12/17 05:00 Total Protein 7.2 g/dl (6.4-8.2) 08/12/17 05:00 Albumin 3.4 g/dl (3.4-5.0) 08/12/17 05:00 Blood Type B POSITIVE 08/11/17 11:45 Antibody Screen Negative 08/11/17 11:08 tele: sr echo 10/2016: nl lv/rv, mod mr cath 2007: normal cors mibi 2011, 2013: no ischemia mibi 10/2016: subtle ant/apical ischemia, nl lvef a/p: 52 m hx htn, hld, here s/p elective gastric sleeve. htn: -resume home inderal as pt a little tachy -monitor bp after inderal and resume home micardis hct if bp rises hld: -cont statin possible cad: -Recent mibi with subtle ischemia. Prior mibi's and cath were unremarkable. He has no cardiac sxs and nl lvef. Likely was false positive mibi.
[2017-08-12] MEDS ORDERED: SODIUM CHLORIDE 1,000 ML IV SCH (11:45)
--- NOTE | 2017-08-12 15:03 | PN ---
Progress Note (short form) - Note Progress Note: POD 1 Pain controlled No complaints Vital Signs Period Temp Pulse Resp BP Sys/Webster Pulse Ox Last 24 Hr 98.5 F-99.9 F 48-109 14-18 111-181/53-109 98-100 Abd soft CBC, BMP 08/12/17 05:00 08/12/17 05:00 UGI: no leak/obstruction Clears Ambulate
--- NOTE | 2017-08-12 16:09 | PN ---
Progress Note, Physician Chief Complaint: Mr Lezama complains of abdominal pain. No cp, sob, n/v. - Current Medication List Current Medications: Active Medications Atorvastatin Calcium (Lipitor -) 40 mg PO HS [facility] Enoxaparin Sodium (Lovenox -) 40 mg SQ BID [facility] Last Admin: 08/12/17 09:59 Dose: 40 mg Famotidine/Sodium Chloride (Pepcid 20 Mg Premixed Ivpb -) 20 mg in 50 mls @ 100 mls/hr IVPB BID [facility] Last Admin: 08/12/17 09:59 Dose: 100 mls/hr Sodium Chloride (Normal Saline -) 1,000 mls @ 75 mls/hr IV ASDIR [facility] Last Admin: 08/12/17 14:54 Dose: 75 mls/hr Metoclopramide HCl (Reglan Injection -) 10 mg IVPUSH Q6H-IV [facility] Last Admin: 08/12/17 14:55 Dose: Not Given Morphine Sulfate (Morphine Sulfate) 4 mg IVPUSH Q4H PRN PRN Reason: PAIN LEVEL 4 - 6 Last Admin: 08/12/17 03:38 Dose: 4 mg Ondansetron HCl (Zofran Injection) 4 mg IVPUSH Q4H-IV [facility] Last Admin: 08/12/17 14:56 Dose: 4 mg Oxycodone HCl (Roxicodone -) 5 mg PO Q4H PRN PRN Reason: PAIN LEVEL 1-5 Propranolol HCl (Inderal -) 60 mg PO BID [facility] Last Admin: 08/12/17 14:54 Dose: 60 mg - Objective Vital Signs: Vital Signs Temperature 37.3 C 08/12/17 14:10 Pulse Rate 102 H 08/12/17 14:10 Respiratory Rate 18 08/12/17 14:10 Blood Pressure 144/73 08/12/17 14:10 O2 Sat by Pulse Oximetry (%) 98 08/12/17 03:40 Constitutional: Yes: No Distress, Calm, Obese Cardiovascular: Yes: Regular Rate and Rhythm. No: Gallop, Murmur, Rub Respiratory: Yes: Regular, CTA Bilaterally, On Nasal O2. No: Rales, Rhonchi, Wheezes Gastrointestinal: Yes: Soft, Hypoactive Bowel Sounds, Tenderness. No: Distention Extremities: Yes: WNL Edema: No Labs: CBC, BMP 08/12/17 05:00 08/12/17 05:00 Problem List - Problems (1) Morbid obesity due to excess calories Assessment/Plan: -s/p gastric bypass -surgery following Code(s): E66.01 - MORBID (SEVERE) OBESITY DUE TO EXCESS CALORIES (2) HTN (hypertension) Assessment/Plan: -continue inderal Code(s): I10 - ESSENTIAL (PRIMARY) HYPERTENSION (3) Hyperlipidemia Assessment/Plan: -continue statin Code(s): E78.5 - HYPERLIPIDEMIA, UNSPECIFIED (4) GERD (gastroesophageal reflux disease) Assessment/Plan: -on IV pepcid Code(s): K21.9 - GASTRO-ESOPHAGEAL REFLUX DISEASE WITHOUT ESOPHAGITIS
[2017-08-12] MEDS ORDERED: ATORVASTATIN CA 40 MG TABLET (FP) PO SCH (22:00)
[2017-08-13] MEDS: METOCLOPRAMIDE HCL INJECTION 10 MG/2 ML VIAL IVPUSH SCH ×2 (04:38→10:31)
[2017-08-13] MEDS: ONDANSETRON 4 MG/2 ML VIAL IVPUSH SCH ×3 (04:39→10:31)
[2017-08-13 08:03] LABS: BASO % 0.3 % (0-2.0); EOS % 0.4 % (0-4.5); HEMATOCRIT 33.2 % (35.4-49); HEMOGLOBIN 11.4 GM/dL (11.7-16.9); LYMPH % 30.4 % (8-40); MCH 29.7 pg (25.7-33.7); MCHC 34.4 g/dl (32.0-35.9); MEAN CELL VOLUME 86.3 fl (80-96); MEAN PLT VOLUME 8.9 fl (7.5-11.1); MONO % 16.1 % (3.8-10.2); NEUT % 52.8 % (42.8-82.8); PLATELET COUNT 195 K/MM3 (134-434); RBC 3.85 M/mm3 (4.00-5.60); RDW 14.6 % (11.9-15.9); WHITE BLOOD COUNT 8.5 K/mm3 (4.0-10.0)
[2017-08-13 08:47] LABS: CHLORIDE 100 mmol/L (98-107); POTASSIUM 4.1 mmol/L (3.5-5.1); SODIUM 138 mmol/L (136-145)
[2017-08-13 09:04] LABS: ANION GAP 8 (8-16); BLOOD UREA NITROGEN 16 mg/dL (7-18); CALCIUM 8.9 mg/dL (8.5-10.1); CO2 30 mmol/L (21-32); CREATININE 1.2 mg/dL (0.7-1.3); GLUCOSE,RANDOM 103 mg/dL (74-106); PHOSPHOROUS 2.6 mg/dL (2.5-4.9)
[2017-08-13] MEDS: FAMOTIDINE 20 MG/50 ML IVPB 20 MG/50 ML MG IVPB SCH (10:31)
[2017-08-13] MEDS ORDERED: PT OWN MED DRAWER 7, Y5N ONE (10:33)
[2017-08-13] MEDS: ENOXAPARIN NA (PORCINE) 40 MG/0.4 ML DISP.SYRIN SQ SCH (10:34)
--- NOTE | 2017-08-13 11:20 | PN ---
Progress Note (short form) - Note Progress Note: s: no cp sob palps dizzy pe: Vital Signs Period Temp Pulse Resp BP Sys/Webster Pulse Ox Last 24 Hr 98.3 F-99.6 F 74-102 16-20 110-144/66-80 95-98 nad no jvd rrr s1s2 no mrg cta bl nl eff aaox3 no le e/c/c abd mild tender, nd pos bs no jaundice diaphoresis Current Medications Generic Name Dose Route Start Last Admin Trade Name Freq PRN Reason Stop Dose Admin Atorvastatin Calcium 40 mg 08/12/17 22:00 08/12/17 21:19 Lipitor - PO 40 mg HS AVIS Administration Enoxaparin Sodium 40 mg 08/11/17 22:00 08/13/17 10:34 Lovenox - SQ 40 mg BID AVIS Administration Famotidine/Sodium Chloride 20 mg in 50 mls @ 100 mls/hr 08/11/17 22:00 10:31 Pepcid 20 Mg Premixed Ivpb - IVPB Not Given BID AVIS Sodium Chloride 1,000 mls @ 75 mls/hr 08/12/17 11:45 08/12/17 14:54 Normal Saline - IV 75 mls/hr ASDIR AVIS Administration Metoclopramide HCl 10 mg 08/11/17 17:45 08/13/17 10:31 Reglan Injection - IVPUSH Not Given Q6H-IV AVIS Morphine Sulfate 4 mg 08/11/17 17:38 08/12/17 03:38 Morphine Sulfate IVPUSH 4 mg Q4H PRN Administration PAIN LEVEL 4 - 6 Ondansetron HCl 4 mg 08/11/17 18:00 08/13/17 10:31 Zofran Injection IVPUSH Not Given Q4H-IV AVIS Oxycodone HCl 5 mg 08/12/17 11:33 08/12/17 20:18 Roxicodone - PO 5 mg Q4H PRN Administration PAIN LEVEL 1-5 Propranolol HCl 60 mg 08/12/17 11:45 08/13/17 10:34 Inderal - PO 60 mg BID AVIS Administration CBC, BMP 08/13/17 06:50 08/13/17 06:50 tele: sr echo 10/2016: nl lv/rv, mod mr cath 2007: normal cors mibi 2011, 2013: no ischemia mibi 10/2016: subtle ant/apical ischemia, nl lvef a/p: 52 m hx htn, hld, here s/p elective gastric sleeve. htn: -cont home meds hld: -cont statin possible cad: -Recent mibi with subtle ischemia. Prior mibi's and cath were unremarkable. He has no cardiac sxs and nl lvef. Likely was false positive mibi. cardiac wilkins stable
[2017-08-13 11:42] VITALS: BP 140/92; PULSE 87; TEMP 99.6
--- NOTE | 2017-08-15 12:34 | PATH ---
Surgical Pathology Report Patient Name: KAREN RECIO Med. Rec. #: [id number] /Age/Gender: 1965 (Age: 52) / M Account: [id number] Location: 4 W TELEMETRY U Taken: 08/11/2017 Received: 08/12/2017 Reported: 08/15/2017 Physicians: Vivek Lee M.D. Specimen(s) Received A: GREATER CURVATURE STOMACH B: LIVER BIOPSY Clinical History Morbid obesity Final Diagnosis A. STOMACH, GREATER CURVATURE, LAPAROSCOPIC VERTICAL SLEEVE GASTRECTOMY: PORTION OF STOMACH WITH MILD CHRONIC GASTRITIS. IMMUNOHISTOCHEMICAL STAIN FOR H. PYLORI IS NEGATIVE. B. LIVER, BIOPSY: STEATOHEPATITIS, MILD; MILD PATCHY STEATOSIS (~5-10%). MILD PERIVENULAR, MILD PORTAL AND FOCAL PERIPORTAL FIBROSIS (STAGE I OF 4). SEE COMMENT. Comment: Biopsy is subcapsular. The liver parenchyma demonstrates mild mixed micro and macrovesicular steatosis (~5-10%). Focal inflammatory infiltrate comprised of lymphocytes and rare neutrophils are seen in portal tracts and rare hepatic lobules. No significant interface activity is present. Mild cholestasis are noted. No granulomas are identified. Focal hepatocyte ballooning is noted. No definitive Ebony hyaline is identified. The trichrome stain highlights focal mild perisinusoidal, portal and focal mild periportal fibrosis. No increase in iron seen within scattered hepatocytes and Kupffer cells by Iron special stain. Overall, findings show mild steatohepatitis and mild steatosis; stage 1 of 4 (Brunt). Etiologies include alcohol and alcoholic liver injury including metabolic conditions, drug or toxin injury. Suggest clinical and serologic correlation. Electronically Signed Yumiko Mckinley M.D. Gross Description A. Received in formalin, labeled "greater curvature of stomach," is a 95 gram, 17.5 x 3.5 x 3.0 cm. portion of stomach with a stapled margin of resection. The serosa is quinones-calhoun with minimal attached fat. The mucosa is quinones-pink with normal folds. No mucosal masses are identified. Optical Glass Inspector sections are submitted in one cassette. B. Received in formalin labeled "liver biopsy," is a 2.8 x 1.4 x 0.9 cm quinones, irregular portion of soft tissue, consistent with a liver biopsy. Optical Glass Inspector sections are submitted in one cassette. DL/08/12/2017 [facility]/08/12/2017
== END 2017-08-13 14:30 | disposition home or self-care (01) | DRG 403 ==
LOC: JSAMEDAYSX 10:08 → EDSTATUS 14:00 → J4W 20:15
PROVIDERS: ADMIT Surgery; ATTEND Surgery
PROC: 0FB24ZX Excision of Left Lobe Liver, Percutaneous Endoscopic Approach, Diagnostic (ICD-10-PCS; 2017-08-11)
PROC: 0WJP4ZZ Inspection of Gastrointestinal Tract, Percutaneous Endoscopic Approach (ICD-10-PCS; 2017-08-11)
PROC: 0DB64Z3 Excision of Stomach, Percutaneous Endoscopic Approach, Vertical (ICD-10-PCS; principal; 2017-08-11 14:00)
PROC: 0DNW4ZZ Release Peritoneum, Percutaneous Endoscopic Approach (ICD-10-PCS; 2017-08-11 14:00)
PROC: 0DJ08ZZ Inspection of Upper Intestinal Tract, Via Natural or Artificial Opening Endoscopic (ICD-10-PCS; 2017-08-11 14:00)
DX: E66.01 Morbid (severe) obesity due to excess calories (principal); Z68.41 Body mass index [BMI] 40.0-44.9, adult; I10 Essential (primary) hypertension; E78.00 Pure hypercholesterolemia, unspecified; R16.1 Splenomegaly, not elsewhere classified; K21.9 Gastro-esophageal reflux disease without esophagitis; K57.92 Diverticulitis of intestine, part unspecified, without perforation or abscess without bleeding; I97.89 Other postprocedural complications and disorders of the circulatory system, not elsewhere classified; R00.0 Tachycardia, unspecified
CPT/HCPCS: 36415; 74241-TC-FY; 80048; 80053; 83735; 84100; 85025; 85027; 86850; 86900; 86901; 87081; 88307-TC; 94660; 94760; J0131; J7030

== ENCOUNTER 2018-02-02 10:03 | Observation (INO) | payer OTHER ==
[2018-02-02 10:08] VITALS: BMI 34.5
[2018-02-02] MEDS ORDERED: morphine CARPU-JECT 2 MG/1 ML DISP.SYRIN IVPUSH ONE (10:56)
[2018-02-02 10:57] LABS: BASO % 0.7 % (0-2.0); EOS % 3.4 % (0-4.5); HEMATOCRIT 46.3 % (35.4-49); HEMOGLOBIN 15.3 GM/dL (11.7-16.9); MCH 28.4 pg (25.7-33.7); MCHC 33.1 g/dl (32.0-35.9); MEAN CELL VOLUME 85.7 fl (80-96); MEAN PLT VOLUME 8.7 fl (7.5-11.1); MONO % 10.5 % (3.8-10.2); NEUT % 32.4 % (42.8-82.8); PLATELET COUNT 222 K/MM3 (134-434); RBC 5.41 M/mm3 (4.00-5.60); RDW 15.4 % (11.9-15.9); WHITE BLOOD COUNT 4.8 K/mm3 (4.0-10.0)
--- NOTE | 2018-02-02 11:01 | PDOC ---
History of Present Illness - General Chief Complaint: Cold Symptoms Stated Complaint: CHEST PAIN Time Seen by Provider: 02/02/18 10:32 History Source: Patient - History of Present Illness Initial Comments: 52 y/o M w/PMH of HTN, HLD, GERD, diverticulitis s/p partial resection of the colon, obesity s/p gastric sleeve presents to the ER presents to the ER with sudden onset of pressure like chest pain at lower portion of sternum with radiation to both sides of back. Pressure is 8/10 in intensity and is worse with coughing. He also c/o some dizziness and night sweats last night. He had some loose stool this AM but no blood in stool. He denies any N/V/F/C, abd pain , LE edema, pain, swelling, dysuria, blood in stool. Pressure in chest is same regardless of exertion or no exertion. He had cold symptoms that started yesterday that included a cough with very little sputum but he did not see the color and post nasal drip. He was to have started cipro for an infection in his R thumb but has not picked up his abx yet. Past History - Past Medical History Allergies/Adverse Reactions: Allergies Allergy/AdvReac Type Severity Reaction Status Date / Time olmesartan [From Benicar] Allergy Unknown Verified 02/02/18 10:06 Home Medications: Ambulatory Orders Atorvastatin Ca [Lipitor] 40 mg PO HS 08/24/14 Omeprazole [Prilosec] 40 mg PO BID 08/24/14 Propranolol HCl [Inderal Xl] 80 mg PO HS 08/24/14 Aspirin [ASA -] 81 mg PO DAILY tab.chew 08/15/16 Acetaminophen/Caffeine/Butalb [Fioricet -] 1 tablet PO PRN PRN 08/10/17 Aspirin/Acetaminophen/Caffeine [Excedrin Migraine Caplet] 1 each PO PRN PRN Telmisartan/Hydrochlorothiazid [Telmisartan-Hctz 80-25 mg Tab] 1 each PO DAILY 08/10/17 Famotidine [Pepcid] 20 mg PO BID #60 tablet 08/11/17 Oxycodone HCl/Acetaminophen [Percocet 5-325 mg Tablet] 1 - 2 tab PO Q6H #28 tab MDD 4 08/11/17 Anemia: No Asthma: Yes Cancer: No Cardiac Disorders: Yes (CAD) CVA: No COPD: No CHF: No Dementia: No Diabetes: No GI Disorders: Yes (diverticulitis; REFLUX) Disorders: No HTN: Yes Hypercholesterolemia: Yes Liver Disease: No Seizures: No Thyroid Disease: No - Surgical History Abdominal Surgery: Yes (COLON RESECTION; HERNIA REPAIR X3) Appendectomy: Yes Cardiac Surgery: No Cholecystectomy: No Lung Surgery: No Neurologic Surgery: No Orthopedic Surgery: No - Immunization History Td Vaccination: Yes - Suicide/Smoking/Psychosocial Hx Smoking Status: No Smoking History: Never smoked Have you smoked in the past 12 months: No Number of Cigarettes Smoked Daily: 0 Hx Alcohol Use: No Drug/Substance Use Hx: No Substance Use Type: Alcohol Hx Substance Use Treatment: No Review of Systems - Review of Systems Able to Perform ROS?: Yes Constitutional: Yes: Night Sweats. No: Chills, Fever Respiratory: Yes: Cough. No: Shortness of Breath Cardiac (ROS): Yes: Chest Pain, Palpitations. No: Edema, Syncope ABD/GI: No: Nausea, Vomiting, Abdominal cramping : No: Burning, Dysuria, Frequency, Hematuria Neurological: Yes: Dizziness. No: Headache *Physical Exam - Vital Signs Last Vital Signs Temp Pulse Resp BP Pulse Ox 97.8 F 69 18 167/99 100 02/02/18 10:06 02/02/18 10:06 02/02/18 10:06 02/02/18 10:06 02/02/18 10:06 - Physical Exam General Appearance: Yes: Nourished, Appropriately Dressed, Moderate Distress ( tachypneic) HEENT: positive: EOMI, Normal Voice Neck: positive: Supple Respiratory/Chest: positive: Lungs Clear, Normal Breath Sounds. negative: Chest Tender, Accessory Muscle Use Cardiovascular: positive: Regular Rhythm, Regular Rate, S1, S2 Gastrointestinal/Abdominal: positive: Normal Bowel Sounds, Soft. negative: Tender Extremity: negative: Pedal Edema, Calf Tenderness Neurologic: positive: Fully Oriented, Alert ED Treatment Course - LABORATORY CBC & Chemistry Diagram: 02/02/18 10:36 02/02/18 10:36 Medical Decision Making - Medical Decision Making 02/02/18 10:57 Will check CBC, CMP, Trops, CXR. R/o ACS. EKG : NSR @ 64 bpm. QTc [address] segment elevations or depressions noted. No TWI noted. Morphine 4mg IV ordered. CTA of chest to r/o dissection. Pt no hx of significant kidney disease on labs here in the past. Will give 1 L NS but will get to CT before labs at this time due to r/o dissection. 02/02/18 11:48 Case discussed and signed out to Dr. Eduardo Barron *DC/Admit/Observation/Transfer Diagnosis at time of Disposition: Chest pain - Referrals - Patient Instructions - Post Discharge Activity
[2018-02-02] MEDS ORDERED: SODIUM CHLORIDE 1,000 ML IV STA (11:02)
[2018-02-02] MEDS ORDERED: morphine CARPU-JECT 4 MG/1 ML DISP.SYRIN IVPUSH ONE ×3 (11:03→12:20)
[2018-02-02] MEDS ORDERED: morphine SULFATE 4 MG/ML VIAL ONE (11:09)
[2018-02-02 11:17] LABS: ALBUMIN 3.6 g/dl (3.4-5.0); ALK PHOS 65 U/L (45-117); ANION GAP 6 MMOL/L (8-16); BILIRUBIN,TOTAL 0.3 mg/dL (0.2-1); BLOOD UREA NITROGEN 14 mg/dL (7-18); CALCIUM 9.3 mg/dL (8.5-10.1); CHLORIDE 109 mmol/L (98-107); CO2 28 mmol/L (21-32); CREATININE 1.1 mg/dL (0.55-1.3); GLUCOSE,RANDOM 89 mg/dL (74-106); POTASSIUM 3.9 mmol/L (3.5-5.1); SGOT/AST 17 U/L (15-37); SGPT/ALT 20 U/L (13-61); SODIUM 143 mmol/L (136-145); TOT PROT 7.6 g/dl (6.4-8.2)
[2018-02-02] MEDS ORDERED: MORPHINE SULFATE 10 MG/1 ML *VIAL ONE (11:46)
--- NOTE | 2018-02-02 11:47 | EKG ---
Test Reason : Blood Pressure : / mmHG Vent. Rate : 064 BPM Atrial Rate : 064 BPM P-R Int : 134 ms QRS Dur : 088 ms QT Int : 368 ms P-R-T Axes : 016 015 025 degrees QTc Int : 379 ms NORMAL SINUS RHYTHM NORMAL ECG WHEN COMPARED WITH ECG OF 24-AUG-2014 13:13, NO SIGNIFICANT CHANGE WAS FOUND Confirmed by NATE HI MD ([id number]) on 02/02/2018 11:47:01 AM Referred By: Confirmed By:NATE HI MD
--- NOTE | 2018-02-02 13:03 | PDOC ---
*Physical Exam - Vital Signs Last Vital Signs Temp Pulse Resp BP Pulse Ox 97.8 F 66 17 127/92 100 02/02/18 10:06 02/02/18 11:40 02/02/18 11:40 02/02/18 11:40 02/02/18 11:40 - Physical Exam Comments: GENERAL: Well-appearing, well-nourished. No apparent distress. HEENT: Normocephalic, atraumatic. PERRL, EOM intact. CARDIOVASCULAR: Normal S1, S2. Regular rate and rhythm. PULMONARY: Clear to auscultation bilaterally. ABDOMEN: Soft, non-distended, non-tender. EXTREMITIES: Normal ROM in all four extremities. No gross deformities. SKIN: Warm, dry. No rash NEUROLOGICAL: No focal neurological deficits. ED Treatment Course - LABORATORY CBC & Chemistry Diagram: 02/02/18 10:36 02/02/18 10:36 - ADDITIONAL ORDERS Additional order review: Laboratory Results 02/02/18 10:36 Sodium 143 Potassium 3.9 Chloride 109 H Carbon Dioxide 28 Anion Gap 6 L BUN 14 Creatinine 1.1 Creat Clearance w eGFR > 60 Random Glucose 89 Calcium 9.3 Total Bilirubin 0.3 AST 17 ALT 20 Alkaline Phosphatase 65 Troponin I < 0.02 Total Protein 7.6 Albumin 3.6 02/02/18 10:36 RBC 5.41 MCV 85.7 MCHC 33.1 RDW 15.4 MPV 8.7 Neutrophils % 32.4 L D Lymphocytes % 53.0 H D Monocytes % 10.5 H Eosinophils % 3.4 D Basophils % 0.7 - Medications Given in the ED: ED Medications Discontinued Medications Generic Name Dose Route Start Last Admin Trade Name Denilsonq PRN Reason Stop Dose Admin Sodium Chloride 1,000 mls @ 1,000 mls/hr 02/02/18 11:02 02/02/18 11:10 Normal Saline - IV 02/02/18 12:01 1,000 mls/hr ASDIR STA Administration Morphine Sulfate 2 mg 02/02/18 10:56 02/02/18 11:10 Morphine Injection - IVPUSH 02/02/18 10:57 Not Given ONCE ONE Morphine Sulfate 4 mg 02/02/18 11:03 02/02/18 11:10 Morphine Injection - IVPUSH 02/02/18 11:04 4 mg ONCE ONE Administration Morphine Sulfate 4 mg 02/02/18 11:45 02/02/18 11:50 Morphine Injection - IVPUSH 02/02/18 11:46 4 mg ONCE ONE Administration Morphine Sulfate 4 mg 02/02/18 12:20 02/02/18 11:50 Morphine Injection - IVPUSH 02/02/18 12:21 4 mg ONCE ONE Administration Medical Decision Making - Medical Decision Making I received patient as a sign out from Dr. Conley 52 y/o M w/PMH of HTN, HLD, GERD, diverticulitis s/p partial resection of the colon, obesity s/p gastric sleeve presents to the ER presents to the ER with sudden onset of pressure like chest pain at lower portion of sternum with radiation to both sides of back. Pressure is 8/10 in intensity and is worse with coughing. EKG, labs, and CTA were all negative for acute pathology. Patient states he had a vry similar pain episode a few years ago where get a cardiac cath at [facility] but they did not put in a stent. PCP: Dr. Kilgore Principal Scientist: Dr. Hannah We will admit patient for chest pain observation. *DC/Admit/Observation/Transfer Diagnosis at time of Disposition: Chest pain - Discharge Dispostion Decision to Admit order Date/Time: Decision to Admit Order Category Date Time Status Decision to Admit to Hospital Routine Admission 02/02/18 12:57 Active - Referrals - Patient Instructions - Post Discharge Activity
--- NOTE | 2018-02-02 14:07 | PDOC ---
Attending Attestation - Resident Resident Name: Juan Conley - ED Attending Attestation I have performed the following: I have examined & evaluated the patient, The case was reviewed & discussed with the resident, I agree w/resident's findings & plan, Exceptions are as noted - HPI HPI: 02/02/18 14:04 Reviewed residents HPI - Physicial Exam PE: 02/02/18 14:05 Reviewed Residents PE - Medical Decision Making 02/02/18 14:05 32 years old hypertension high cholesterol previous catheterization but no stents presents to the ED with severe abrupt sudden onset left sided chest pain awoke patient from sleep radiating to back bilaterally. Patient is visibly uncomfortable EKG shows no ST elevations or T-wave inversions given onset of pain severity of pain radiation of pain CTA ordered Reevaluation patient required 12 mg of morphine IV to control pain CTA demonstrates no dissection no other acute pathology. HEART SCORE 4. 1st troponin negative. Will observe for Further evaluation Heart Score/ECG Review - History History: Highly suspicious - Electrocardiogram EKG: Normal - Age Age: 45-65 - Risk Factors Risk Factors Heart Score: Yes Hx Hypercholesterolemia, Yes Hx Hypertension Based on the list above the patient has:: 1-2 risk factors - Troponin Troponin: </= normal limit - Score Heart Score - Total: 4 - ECG Impressions Comment:: 02/02/18 14:[address] elevations or T-wave inversions. Interpreted by me.
[2018-02-02] MEDS ORDERED: ACETAMINOPHEN 325 MG TABLET (FP) PO PRN (14:58)
[2018-02-02] MEDS ORDERED: oxyCODONE HCL 5 MG TABLET PO PRN (14:58)
[2018-02-02] MEDS ORDERED: MORPHINE SULFATE 2 MG/ML VIAL IVPUSH PRN (14:58)
[2018-02-02] MEDS ORDERED: ONDANSETRON 4 MG/2 ML VIAL IVPUSH PRN (14:58)
--- NOTE | 2018-02-02 15:06 | HP ---
Admitting History and Physical - Primary Care Physician PCP: John Kilgore - Admission Chief Complaint: My chest is hurting History of Present Illness: Mr Lezama is a very pleasant 52 year old male who comes in with chest pain. He says his symptoms began on Tuesday with coughing. He says there have been some people sick at his place of employment which is where he might have caught a cold. He says he had a non-productive cough beginning on Tuesday. This has been associated with rhinorrhea and night sweats. This morning he developed acute chest pain this morning. He says it started off as minor but worsened throughout the morning. It was constant and made worse by palpation of the area , coughing, and deep breathing. He describes the pain as pressure like that radiated to his back. He says at its worst it was 10/10. Nothing relieved the pain. It was associated with minor shortness of breath. He denies lightheadedness, passing out, nausea, vomiting, abdominal pain, diarrhea, constipation, difficulty or pain on urination, or swelling. Currently the pain is controlled with morphine. 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) Cardiovascular: Yes: CAD, HTN, Hyperlipdemia Gastrointestinal: Yes: Diverticulosis, GERD, Other (COLON POLYPS, COLONOSCOPY 3 TO 4 YEARS A GO) Musculoskeletal: Yes: Other (chronic neck pain/ cervicalgia) - Past Surgical History Past Surgical History: Yes: Appendectomy, Bariatric Surgery (gastric sleeve), Colectomy (partial), Colonoscopy, Hernia Repair - Smoking History Smoking history: Never smoked Have you smoked in the past 12 months: No Aproximately how many cigarettes per day: 0 - Alcohol/Substance Use Hx Alcohol Use: No History of Substance Use: reports: None - Social History Usual Living Arrangement: Yes: With Spouse ADL: Independent 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[employer] [place] History of Recent Travel: No Home Medications - Allergies Allergies/Adverse Reactions: Allergies Allergy/AdvReac Type Severity Reaction Status Date / Time olmesartan [From Benicar] Allergy Unknown Verified 02/02/18 10:06 - Home Medications Home Medications: Ambulatory Orders Atorvastatin Ca [Lipitor] 40 mg PO HS 08/24/14 Omeprazole [Prilosec] 40 mg PO BID 08/24/14 Propranolol HCl [Inderal Xl] 80 mg PO HS 08/24/14 Aspirin [ASA -] 81 mg PO DAILY tab.chew 08/15/16 Acetaminophen/Caffeine/Butalb [Fioricet -] 1 tablet PO PRN PRN 08/10/17 Aspirin/Acetaminophen/Caffeine [Excedrin Migraine Caplet] 1 each PO PRN PRN Telmisartan/Hydrochlorothiazid [Telmisartan-Hctz 80-25 mg Tab] 1 each PO DAILY 08/10/17 Famotidine [Pepcid] 20 mg PO BID #60 tablet 08/11/17 Oxycodone HCl/Acetaminophen [Percocet 5-325 mg Tablet] 1 - 2 tab PO Q6H #28 tab MDD 4 08/11/17 Family Disease History - Family Disease History Family Disease History: CA: Father (), Mother (diverticulitis, HTN), Other: Mother, Brother (HTN), Sister (HTN) Review of Systems Findings/Remarks: Full review of systems obtained, as per HPI and otherwise negative Physical Examination Vital Signs: Vital Signs Temperature 36.6 C 02/02/18 10:06 Pulse Rate 66 02/02/18 11:40 Respiratory Rate 17 02/02/18 11:40 Blood Pressure 127/92 02/02/18 11:40 O2 Sat by Pulse Oximetry (%) 100 02/02/18 11:40 Constitutional: Yes: No Distress, Calm, Obese Eyes: Yes: Conjunctiva Clear, EOM Intact, PERRL Cardiovascular: Yes: Regular Rate and Rhythm, Other (reproducible chest pain with palpation and deep breathing). No: Gallop, Murmur, Rub Respiratory: Yes: Regular, CTA Bilaterally. No: Rales, Rhonchi, Wheezes Gastrointestinal: Yes: Normal Bowel Sounds, Soft. No: Distention, Tenderness Extremities: Yes: WNL Edema: No Labs: CBC, BMP 02/02/18 10:36 02/02/18 10:36 Imaging - Results Chest X-ray: Report Reviewed, Image Reviewed EKG: Image Reviewed Problem List - Problems (1) Chest pain Assessment/Plan: -low suspicion cardiac in nature -symptoms most c/w pleurisy -however with risk factors for ACS -admit to tele obs -cardiac enzymes x3 -cardiology consult -if negative, will discharge on short course of prednisone and NSAIDs -pain control while here Code(s): R07.9 - CHEST PAIN, UNSPECIFIED Qualifiers: Chest pain type: chest pain on breathing Qualified Code(s): R07.1 - Chest pain on breathing; R07.81 - Pleurodynia (2) Acute viral bronchitis Assessment/Plan: -should be self limited -monitor -no need for antibiotics Code(s): J20.8 - ACUTE BRONCHITIS DUE TO OTHER SPECIFIED ORGANISMS (3) Sleep apnea Assessment/Plan: -monitor Code(s): G47.30 - SLEEP APNEA, UNSPECIFIED (4) GERD (gastroesophageal reflux disease) Assessment/Plan: -continue PPI Code(s): K21.9 - GASTRO-ESOPHAGEAL REFLUX DISEASE WITHOUT ESOPHAGITIS (5) HTN (hypertension) Assessment/Plan: -controlled -continue home regimen Code(s): I10 - ESSENTIAL (PRIMARY) HYPERTENSION (6) Hyperlipidemia Assessment/Plan: -continue statin Code(s): E78.5 - HYPERLIPIDEMIA, UNSPECIFIED
--- NOTE | 2018-02-02 16:27 | PN ---
Progress Note (short form) - Note Progress Note: cc: cp, cough hpi: 52 m hx htn, hld, here with cp, cough. Past few days with productive cough, body aches. Today started having cp when cough or deep breath. Across front of chest, achey feeling, mild. No sob, palps, dizzy, loc, pnd, orthopnea , le edema. Sees me for cardio. pmh: per hpi psh: gastric sleeve social: no tob fam: no premature cad ros: per hpi; no nvd, fever, cough, gib, hematuria, dysuria, vision changes meds: Home Medications Medication Instructions Recorded Atorvastatin Ca [Lipitor] 40 mg PO HS 08/24/14 Omeprazole [Prilosec] 40 mg PO BID 08/24/14 Propranolol HCl [Inderal Xl] 80 mg PO HS 08/24/14 Aspirin [ASA -] 81 mg PO DAILY tab.chew 08/15/16 Acetaminophen/Caffeine/Butalb 1 tablet PO PRN PRN 08/10/17 [Fioricet -] Aspirin/Acetaminophen/Caffeine 1 each PO PRN PRN 08/10/17 [Excedrin Migraine Caplet] Telmisartan/Hydrochlorothiazid 1 each PO DAILY 08/10/17 [Telmisartan-Hctz 80-25 mg Tab] Famotidine [Pepcid] 20 mg PO BID #60 tablet 08/11/17 Oxycodone HCl/Acetaminophen 1 - 2 tab PO Q6H #28 tab MDD 4 08/11/17 [Percocet 5-325 mg Tablet] pe: Vital Signs Period Temp Pulse Resp BP Sys/Webster Pulse Ox Last 24 Hr 97.8 F 66-69 17-18 127-167/92-99 100-100 nad no jvd rrr s1s2 no mrg cta bl nl eff aaox3 no le e/c/c abd nt, nd pos bs no jaundice diaphoresis pos dp pt no carotid bruits Laboratory Last Values WBC 4.8 K/mm3 (4.0-10.0) 02/02/18 10:36 RBC 5.41 M/mm3 (4.00-5.60) 02/02/18 10:36 Hgb 15.3 GM/dL (11.7-16.9) 02/02/18 10:36 Hct 46.3 % (35.4-49) D 02/02/18 10:36 MCV 85.7 fl (80-96) 02/02/18 10:36 MCH 28.4 pg (25.7-33.7) 02/02/18 10:36 MCHC 33.1 g/dl (32.0-35.9) 02/02/18 10:36 RDW 15.4 % (11.9-15.9) 02/02/18 10:36 Plt Count 222 K/MM3 (134-434) 02/02/18 10:36 MPV 8.7 fl (7.5-11.1) 02/02/18 10:36 Absolute Neuts (auto) 1.6 K/mm3 (1.5-8.0) 02/02/18 10:36 Neutrophils % 32.4 % (42.8-82.8) L D 02/02/18 10:36 Lymphocytes % 53.0 % (8-40) H D 02/02/18 10:36 Monocytes % 10.5 % (3.8-10.2) H 02/02/18 10:36 Eosinophils % 3.4 % (0-4.5) D 02/02/18 10:36 Basophils % 0.7 % (0-2.0) 02/02/18 10:36 Nucleated RBC % 0 % (0-0) 02/02/18 10:36 Sodium 143 mmol/L (136-145) 02/02/18 10:36 Potassium 3.9 mmol/L (3.5-5.1) 02/02/18 10:36 Chloride 109 mmol/L (98-107) H 02/02/18 10:36 Carbon Dioxide 28 mmol/L (21-32) 02/02/18 10:36 Anion Gap 6 MMOL/L (8-16) L 02/02/18 10:36 BUN 14 mg/dL (7-18) 02/02/18 10:36 Creatinine 1.1 mg/dL (0.55-1.3) 02/02/18 10:36 Creat Clearance w eGFR > 60 (>60) 02/02/18 10:36 Random Glucose 89 mg/dL (74-106) 02/02/18 10:36 Calcium 9.3 mg/dL (8.5-10.1) 02/02/18 10:36 Total Bilirubin 0.3 mg/dL (0.2-1) 02/02/18 10:36 AST 17 U/L (15-37) 02/02/18 10:36 ALT 20 U/L (13-61) 02/02/18 10:36 Alkaline Phosphatase 65 U/L (45-117) 02/02/18 10:36 Troponin I < 0.02 ng/ml (0.00-0.05) 02/02/18 10:36 Total Protein 7.6 g/dl (6.4-8.2) 02/02/18 10:36 Albumin 3.6 g/dl (3.4-5.0) 02/02/18 10:36 echo 10/2016: nl lv/rv, mod mr cath 2007: normal cors mibi 2011, 2013: no ischemia mibi 10/2016: subtle ant/apical ischemia, nl lvef ecg: sr, nl intervals, no ischemic changes a/p: 52 m hx htn, hld, here with cough, cp. cough, cp: -seems to have URI with frequent cough causing some pleuritic cp. -ecg unremarkable. -cta chest/abd shows unremarkable aorta and lungs -trop neg x1 -cont tele, sebastian -check echo, if benign and sebastian neg ok for dc tomorrow from cardiac pov htn: -cont home meds hld: -cont statin possible cad: -Recent mibi with subtle ischemia. Prior mibi's and cath were unremarkable. He has no cardiac sxs and nl lvef. Likely was false positive mibi.
[2018-02-02] MEDS ORDERED: ATORVASTATIN CA 40 MG TABLET (FP) PO SCH (22:00)
[2018-02-02] MEDS: PANTOPRAZOLE 20 MG TABLET (FP) PO SCH (22:05)
[2018-02-02] MEDS: DOCUSATE SODIUM 100 MG CAPSULE (FP) PO SCH (22:05)
[2018-02-03 07:14] LABS: BASO % 0.4 % (0-2.0); EOS % 3.1 % (0-4.5); HEMATOCRIT 40.8 % (35.4-49); HEMOGLOBIN 13.2 GM/dL (11.7-16.9); LYMPH % 43.6 % (8-40); MCHC 32.4 g/dl (32.0-35.9); MEAN CELL VOLUME 86.4 fl (80-96); MEAN PLT VOLUME 8.6 fl (7.5-11.1); NEUT % 42.9 % (42.8-82.8); PLATELET COUNT 184 K/MM3 (134-434); RBC 4.73 M/mm3 (4.00-5.60); RDW 15.3 % (11.9-15.9); WHITE BLOOD COUNT 4.4 K/mm3 (4.0-10.0)
[2018-02-03 07:38] LABS: ANION GAP 6 MMOL/L (8-16); BLOOD UREA NITROGEN 15 mg/dL (7-18); CALCIUM 9.1 mg/dL (8.5-10.1); CHLORIDE 107 mmol/L (98-107); CO2 28 mmol/L (21-32); GLUCOSE,RANDOM 78 mg/dL (74-106); MAGNESIUM 2.2 mg/dL (1.8-2.4); PHOSPHOROUS 3.7 mg/dL (2.5-4.9); SODIUM 141 mmol/L (136-145)
[2018-02-03] MEDS ORDERED: HYDROCHLOROTHIAZIDE 25 MG TABLET (FP) PO SCH (10:00)
[2018-02-03] MEDS ORDERED: VALSARTAN 160 MG TABLET (UD) PO SCH (10:00)
[2018-02-03] MEDS ORDERED: ASPIRIN 81 MG CHEWABLE TABLETS PO SCH (10:00)
[2018-02-03] MEDS ORDERED: POLYETHYLENE GLYCOL 3350 119 GM BTL PO SCH (10:00)
[2018-02-03] MEDS ORDERED: PATIENT'S OWN MEDICATION (NON-FORMULARY) (Telmisartan/Hydrochlorothiazid [Telmisartan-Hctz PO SCH (10:00)
[2018-02-03] MEDS: PANTOPRAZOLE 20 MG TABLET (FP) PO SCH (10:20)
[2018-02-03] MEDS: DOCUSATE SODIUM 100 MG CAPSULE (FP) PO SCH (10:20)
--- NOTE | 2018-02-03 10:28 | PN ---
Progress Note (short form) - Note Progress Note: s: no cp sob palps dizzy; still with cough o: Vital Signs Period Temp Pulse Resp BP Sys/Webster Pulse Ox Last 24 Hr 97.8 F-98.3 F 50-70 17-20 127-170/69-92 96-100 nad no jvd rrr s1s2 no mrg cta bl nl eff aaox3 no le e/c/c abd nt, nd pos bs no jaundice diaphoresis Current Medications Generic Name Dose Route Start Last Admin Trade Name Freq PRN Reason Stop Dose Admin Acetaminophen 650 mg 02/02/18 14:58 Tylenol - PO Q4H PRN PAIN LEVEL 1 - 3 Aspirin 81 mg 02/03/18 10:00 02/03/18 10:20 Asa - PO 81 mg DAILY AVIS Administration Atorvastatin Calcium 40 mg 02/02/18 22:00 02/02/18 22:05 Lipitor - PO 40 mg HS AVIS Administration Docusate Sodium 100 mg 02/02/18 22:00 02/03/18 10:20 Colace - PO 100 mg BID AVIS Administration Hydrochlorothiazide 25 mg 02/03/18 10:00 02/03/18 10:20 Hctz - PO 25 mg DAILY AVIS Administration Morphine Sulfate 2 mg 02/02/18 14:58 02/02/18 19:02 Morphine Sulfate IVPUSH 2 mg Q4H PRN Administration PAIN LEVEL 6-10 Ondansetron HCl 4 mg 02/02/18 14:58 Zofran Injection IVPUSH Q6H PRN NAUSEA Oxycodone HCl 5 mg 02/02/18 14:58 Roxicodone - PO Q4H PRN PAIN LEVEL 4 - 6 Pantoprazole Sodium 20 mg 02/02/18 22:00 02/03/18 10:20 Protonix - PO 20 mg BID AVIS Administration Polyethylene Glycol 17 gm 02/03/18 10:00 02/03/18 10:20 Miralax (For Daily Use) - PO 17 grams DAILY AVIS Administration Propranolol HCl 80 mg 02/02/18 22:00 02/02/18 22:00 Inderal La - PO Not Given HS AVIS Valsartan 320 mg 02/03/18 10:00 02/03/18 10:20 Diovan - PO 320 mg DAILY AVIS Administration CBC, BMP 02/03/18 05:30 02/03/18 05:30 echo 10/2016: nl lv/rv, mod mr cath 2007: normal cors mibi 2011, 2013: no ischemia mibi 10/2016: subtle ant/apical ischemia, nl lvef ecg: sr, nl intervals, no ischemic changes tele: sr a/p: 52 m hx htn, hld, here with cough, cp. cough, cp: -seems to have URI with frequent cough causing some pleuritic cp. -ecg unremarkable. -cta chest/abd shows unremarkable aorta and lungs -trop neg x3 -tele benign -check echo, if benign then ok for dc from cardiac pov htn: -cont home meds hld: -cont statin possible cad: -Recent mibi with subtle ischemia. Prior mibi's and cath were unremarkable. He has no cardiac sxs and nl lvef. Likely was false positive mibi.
--- NOTE | 2018-02-03 10:58 | ECHO ---
Name: KAREN RECIO Exam:Adult Echocardiogram Study Date: 02/03/2018 08:31 AM Age: 52 yrs Reason For Study: Chest pain Height: 64 in Weight: 198 lb BSA: 1.9 m2 MMode/2D Measurements & Calculations IVSd: 0.99 cm Ao root diam: 3.0 cm LVIDd: 4.5 cm LA dimension: 3.5 cm LVIDs: 2.6 cm ACS: 1.9 cm LVPWd: 1.0 cm IVSs: 1.4 cm LVPWs: 1.4 cm EDV(Teich): 94.5 ml ESV(Teich): 23.5 ml Doppler Measurements & Calculations MV E max vince: 105.9 cm/sec Ao V2 max: 139.8 cm/sec MV A max vince: 60.2 cm/sec Ao max P.8 mmHg MV E/A: 1.8 Ao V2 mean: 88.6 cm/sec Ao mean P.7 mmHg Ao V2 VTI: 31.5 cm Med Peak E' Vince: 7.0 cm/sec Med E/e': 15.1 Lat Peak E' Vince: 9.7 cm/sec Lat E/e': 10.9 Left Ventricle Left ventricular systolic function is normal. Ejection Fraction = 60-65%. Right Ventricle The right ventricle is normal in size and function. Atria Normal left and right atrial size and function. Mitral Valve The mitral valve is normal in structure and function. There is no mitral valve stenosis. There is tra ce mitral regurgitation. Tricuspid Valve The tricuspid valve is normal in structure and function. There is trace tricuspid regurgitation. Aortic Valve The aortic valve is trileaflet. No hemodynamically significant valvular aortic stenosis. No aortic regurgitation is present. Pulmonic Valve The pulmonic valve is not well seen, but is grossly normal. There is no pulmonic valvular stenosis. T here is no pulmonic valvular regurgitation. Great Vessels The aortic root is normal size. Pericardium/Pleura There is no pericardial effusion. Interpretation Summary Left ventricular systolic function is normal. Ejection Fraction = 60-65%. The right ventricle is normal in size and function. There is trace mitral regurgitation. There is no pericardial effusion. MD Ambrose Negrete 02/03/2018 10:57 AM
[2018-02-03 11:11] VITALS: BP 148/88; PULSE 61; TEMP 98.1
--- NOTE | 2018-02-03 12:37 | DS ---
Physical Examination Vital Signs: Vital Signs Temperature 36.7 C 02/03/18 10:00 Pulse Rate 61 02/03/18 10:00 Respiratory Rate 20 02/03/18 10:00 Blood Pressure 148/88 02/03/18 10:00 O2 Sat by Pulse Oximetry (%) 96 02/03/18 10:00 Constitutional: Yes: No Distress, Calm, Obese Cardiovascular: Yes: Regular Rate and Rhythm. No: Gallop, Murmur, Rub Respiratory: Yes: Regular, CTA Bilaterally. No: Rales, Rhonchi, Wheezes Gastrointestinal: Yes: Normal Bowel Sounds, Soft. No: Distention, Tenderness Extremities: Yes: WNL Edema: No Labs: CBC, BMP 02/03/18 05:30 02/03/18 05:30 Discharge Summary Reason For Visit: CHEST PAIN Current Active Problems Acute viral bronchitis (Acute) Chest pain (Acute) Sleep apnea (Acute) Hospital Course: (1) Chest pain Code(s): R07.9 - CHEST PAIN, UNSPECIFIED Qualifiers: Chest pain type: chest pain on breathing Qualified Code(s): R07.1 - Chest pain on breathing; R07.81 - Pleurodynia (2) Acute viral bronchitis Code(s): J20.8 - ACUTE BRONCHITIS DUE TO OTHER SPECIFIED ORGANISMS (3) Sleep apnea Code(s): G47.30 - SLEEP APNEA, UNSPECIFIED (4) GERD (gastroesophageal reflux disease) Code(s): K21.9 - GASTRO-ESOPHAGEAL REFLUX DISEASE WITHOUT ESOPHAGITIS (5) HTN (hypertension) Code(s): I10 - ESSENTIAL (PRIMARY) HYPERTENSION (6) Hyperlipidemia Code(s): E78.5 - HYPERLIPIDEMIA, UNSPECIFIED Mr Lezama is a very pleasant 52 year old male who came in with pleurisy. Recently he caught an acute viral bronchitis and developed chest pain associated with this. However since he has multiple risk factors he was admitted to telemetry under observation. Cardiac enzymes x3 were sent and negative. Cardiology consulted and case discussed. EKG was normal, ECHO was normal. Currently the pain has resolved. He is safe for discharge home. Condition: Good - Instructions Diet, Activity, Other Instructions: resume previous diet and activity Referrals: John Kilgore MD [Primary Care Provider] - Ivan Pinzon MD [Staff Physician] - Disposition: HOME - Home Medications Comprehensive Discharge Medication List: Ambulatory Orders Atorvastatin Ca [Lipitor] 40 mg PO HS 08/24/14 Omeprazole [Prilosec] 40 mg PO BID 08/24/14 Propranolol HCl [Inderal Xl] 80 mg PO HS 08/24/14 Aspirin [ASA -] 81 mg PO DAILY tab.chew 08/15/16 Acetaminophen/Caffeine/Butalb [Fioricet -] 1 tablet PO PRN PRN 08/10/17 Aspirin/Acetaminophen/Caffeine [Excedrin Migraine Caplet] 1 each PO PRN PRN Telmisartan/Hydrochlorothiazid [Telmisartan-Hctz 80-25 mg Tab] 1 each PO DAILY 08/10/17 Famotidine [Pepcid] 20 mg PO BID #60 tablet 08/11/17 Oxycodone HCl/Acetaminophen [Percocet 5-325 mg Tablet] 1 - 2 tab PO Q6H #28 tab MDD 4 08/11/17
== END 2018-02-03 13:56 | disposition home or self-care (01) ==
LOC: JER 10:03 → JERBED 12:57 → J4S 16:11
PROVIDERS: ADMIT Internal Medicine; ATTEND Internal Medicine
PROC: 3E033NZ Introduction of Analgesics, Hypnotics, Sedatives into Peripheral Vein, Percutaneous Approach (ICD-10-PCS; principal; 2018-02-02)
PROC: 3E033GC Introduction of Other Therapeutic Substance into Peripheral Vein, Percutaneous Approach (ICD-10-PCS; 2018-02-02)
PROC: 3E0337Z Introduction of Electrolytic and Water Balance Substance into Peripheral Vein, Percutaneous Approach (ICD-10-PCS; 2018-02-02)
DX: R07.9 Chest pain, unspecified (principal); J20.8 Acute bronchitis due to other specified organisms; B97.89 Other viral agents as the cause of diseases classified elsewhere; R05 Cough; I10 Essential (primary) hypertension; E78.5 Hyperlipidemia, unspecified; K21.9 Gastro-esophageal reflux disease without esophagitis; J45.909 Unspecified asthma, uncomplicated; I25.10 Atherosclerotic heart disease of native coronary artery without angina pectoris; G47.30 Sleep apnea, unspecified; E66.9 Obesity, unspecified; Z68.36 Body mass index [BMI] 36.0-36.9, adult; Z98.84 Bariatric surgery status; Z79.82 Long term (current) use of aspirin
CPT/HCPCS: 36415; 71045-TC-FY; 71275-TC; 74174-TC; 80048; 80053; 82550; 83735; 84100; 84484; 85025; 93005; 93010; 93306-TC; 96361; 96374; 96375; 96376; 99285-25; G0378; J7030

== ENCOUNTER 2018-05-17 16:56 | Observation (INO) | payer OTHER ==
--- NOTE | 2018-05-17 17:15 | PDOC ---
History of Present Illness - General Chief Complaint: Pain Stated Complaint: ABD PAIN Time Seen by Provider: 05/17/18 17:15 - History of Present Illness Initial Comments: 52 year old male with PMH of HTN, HLD, GERD, diverticulitis s/p partial resection of the colon, right inguinal hernia repair, obesity s/p gastric sleeve (by Rosa on 08/03) presents to the ER for acute on chronic abdominal pain. Patient has had abdominal pain for the past month without nausea, vomiting , or diarrhea and just underwent an outpatient CT scan (for chronic constipation and intermittent abdominal pain) with IV contrast shortly after which he had severe abdominal pain and nausea. The pain started at 15:50 PM and has been sharp and intermittent since. He describes the majority of his pain as deep and crampy in his epigastrium. He has secondary sites of pain all over his abdomen but the most significant of which in his right lower quadrant. He denies any diarrhea but he has had constipation. He denies fevers, chills vomiting, shortness of breath or other symptoms. 05/17/18 17:26 Past History - Past Medical History Allergies/Adverse Reactions: Allergies Allergy/AdvReac Type Severity Reaction Status Date / Time olmesartan [From Benicar] Allergy Unknown Verified 05/17/18 16:58 Home Medications: Ambulatory Orders Omeprazole [Prilosec] 40 mg PO DAILY 08/24/14 Propranolol HCl [Inderal Xl] 60 mg PO BID 08/24/14 Acetaminophen/Caffeine/Butalb [Fioricet -] 1 tablet PO PRN PRN 08/10/17 Famotidine [Pepcid] 20 mg PO BID #60 tablet 08/11/17 Albuterol Sulfate Inhaler - [Ventolin Hfa Inhaler -] 2 puff IH PRN PRN 05/17/18 Irbesartan/Hydrochlorothiazide [Irbesartan-Hctz 300-12.5 mg Tb] 1 each PO DAILY 05/17/18 Mometasone/Formoterol [Dulera 200 Mcg/5 Mcg Inhaler] 2 inh IH BID 05/17/18 Anemia: No Asthma: No Cancer: No Cardiac Disorders: No CVA: No COPD: No CHF: No Dementia: No Diabetes: No GI Disorders: Yes Disorders: No HTN: Yes Hypercholesterolemia: Yes Liver Disease: No Seizures: No Thyroid Disease: No - Surgical History Abdominal Surgery: Yes (COLON RESECTION; HERNIA REPAIR X3) Appendectomy: Yes Cardiac Surgery: No Cholecystectomy: No Lung Surgery: No Neurologic Surgery: No Orthopedic Surgery: No - Immunization History Td Vaccination: Yes - Suicide/Smoking/Psychosocial Hx Smoking Status: No Smoking History: Never smoked Have you smoked in the past 12 months: No Number of Cigarettes Smoked Daily: 0 Information on smoking cessation initiated: No Hx Alcohol Use: No Drug/Substance Use Hx: No Substance Use Type: Alcohol Hx Substance Use Treatment: No Review of Systems - Review of Systems Constitutional: No: Chills, Diaphoresis, Fever HEENTM: No: Blurred Vision, Tearing Respiratory: No: Cough, Orthopnea, Shortness of Breath Cardiac (ROS): No: Chest Pain, Edema, Irregular Heart Rate ABD/GI: Yes: Constipated, Nausea. No: Diarrhea, Vomiting : No: Burning, Dysuria Musculoskeletal: No: Back Pain, Gout, Joint Pain Integumentary: No: Flushing, Lesions, Lumps Neurological: No: Headache, Numbness, Paresthesia Psychiatric: No: Anxiety, Depression Hematologic/Lymphatic: No: Anemia, Blood Clots, Easy Bleeding *Physical Exam - Vital Signs Last Vital Signs Temp Pulse Resp BP Pulse Ox 83 16 168/95 100 05/17/18 16:59 05/17/18 16:59 05/17/18 16:59 05/17/18 16:59 - Physical Exam General Appearance: Yes: Nourished, Appropriately Dressed. No: Apparent Distress HEENT: positive: EOMI, MINDY, Normal ENT Inspection, Normal Voice Neck: positive: Trachea midline, Normal Thyroid, Supple. negative: Tender, Rigid Respiratory/Chest: positive: Lungs Clear, Normal Breath Sounds. negative: Chest Tender, Respiratory Distress, Accessory Muscle Use Cardiovascular: positive: Regular Rhythm, Regular Rate Gastrointestinal/Abdominal: positive: Normal Bowel Sounds, Tender (epigastric tenderenss with signifcant right inguinal tenderness), Flat, Soft, Other (many scars from his many prevous surgeries) Lymphatic: negative: Adenopathy, Tenderness Musculoskeletal: positive: Normal Inspection. negative: Decreased Range of Motion Extremity: positive: Normal Capillary Refill, Normal Inspection, Normal Range of Motion. negative: Tender Integumentary: positive: Normal Color, Dry, Warm Neurologic: positive: Fully Oriented, Alert, Normal Mood/Affect, Normal Response , Motor Strength 5/5 Moderate Sedation - Procedure Monitoring Vital Signs: Procedure Monitoring Vital Signs Temperature Pulse Rate 83 05/17/18 16:59 Respiratory Rate 16 05/17/18 16:59 Blood Pressure 168/95 05/17/18 16:59 O2 Sat by Pulse Oximetry (%) 100 05/17/18 16:59 ED Treatment Course - LABORATORY CBC & Chemistry Diagram: 05/17/18 17:50 05/17/18 17:50 Medical Decision Making - Medical Decision Making 52 year with recent gastric sleeve by Dr. Lee and multiple previous gastric surgeries presenting with acute on chronic abdominal pain shortly after a CT with IV contrast. Unfortunately the patient already had an IV contrast load today but our concern is for SBO vs. fecal impaction. vs. gastric sleeve related pathology. We will get a dry abdominal CT, labs, and will likely consult Dr. Lee for further management. I signed this patient out to Dr. Frances in stable condition but imagine he will ultimately be admitted for at least intractable abdominal pain. Of note, I did attempt to see the image online through the patient's online portal and unfortunately the films were not uploaded. 05/17/18 21:25 *DC/Admit/Observation/Transfer Diagnosis at time of Disposition: Abdominal pain Qualifiers: Abdominal location: generalized Qualified Code(s): R10.84 - Generalized abdominal pain - Discharge Dispostion Condition at time of disposition: Stable - Referrals - Patient Instructions - Post Discharge Activity
--- NOTE | 2018-05-17 17:34 | PDOC ---
Attending Attestation - HPI HPI: 05/17/18 18:14 The patient is a 52 year old male with a significant past medical history of HTN , HLD, GERD, diverticulitis s/p partial resection of the colon, s/p gastric sleeve who presents to the ED for severe abdominal pain today. The patient reports having an abdominal CT with IV contrast earlier this afternoon, however , developed pain shortly after and does not have the CT report. - Physicial Exam PE: 05/17/18 18:15 GENERAL: The patient is in mild distress. Pt in obvious severe pain. HEAD: Normal with no signs of trauma. EYES: PERRLA, EOMI, sclera anicteric, conjunctiva clear. ENT: Ears normal, nares patent, oropharynx clear without exudates. Moist mucous membranes. NECK: Normal range of motion, supple without lymphadenopathy, JVD, or masses. LUNGS: Breath sounds equal, clear to auscultation bilaterally. No wheezes, and no crackles. HEART:Regular rate and rhythm, normal S1 and S2 without murmur, rub or gallop. ABDOMEN: (+) diffusely tender, distended. Soft, normoactive bowel sounds. No guarding, no rebound. No masses palpable. EXTREMITIES: Normal range of motion, no edema. No clubbing or cyanosis. No erythema, or tenderness. NEUROLOGICAL: Cranial nerves II through XII grossly intact. Normal speech. No focal neurological deficits. MUSCULOSKELETAL: Back non-tender to palpation, no CVA tenderness SKIN: Warm, Dry, normal turgor, no rashes or lesions noted. - Medical Decision Making 05/17/18 18:16 Documentation prepared by Negra Amanda, acting as medical liaison for Danni Escamilla MD <Negra Amanda - Last Filed: 05/17/18 18:46> - Resident Resident Name: Mendez Castellanos - ED Attending Attestation I have performed the following: I have examined & evaluated the patient, The case was reviewed & discussed with the resident, I agree w/resident's findings & plan, Exceptions are as noted - HPI HPI: - Medical Decision Making 05/17/18 18:30 52 yo M presenting with a complaint of abdominal pain H/o bowel resection, h/o hernia, h/o gastric bypass Pt s/p outpatient CT with IV contrast and THEN developed severe abdominal pain No fevers or chills Pain is diffuse, intermittently worsening No diarrhea Abd is distended, diffusely tender to palpation DD: Diverticulitis, ruptured viscus, obstruction, mesenteric ischemia, bowel ischemia Will do: Labs CT Analgesia IVF EKG - NSR rate of 90 bpm, axis nml, intervals nml, no st elevation or depression 05/17/18 18:44 Laboratory Tests 05/17/18 05/17/18 17:50 17:50 WBC 7.2 Hgb 15.8 Hct 45.4 Plt Count 183 INR 1.08 <Danni Escamilla - Last Filed: 05/18/18 17:04>
[2018-05-17] MEDS ORDERED: morphine CARPU-JECT 4 MG/1 ML DISP.SYRIN IVPUSH ONE ×2 (17:45→20:05)
[2018-05-17] MEDS ORDERED: morphine SULFATE 4 MG/ML VIAL ONE (17:54)
[2018-05-17 18:19] LABS: BASO % 0.4 % (0-2.0); EOS % 0.8 % (0-4.5); HEMATOCRIT 45.4 % (35.4-49); HEMOGLOBIN 15.8 GM/dL (11.7-16.9); LYMPH % 9.7 % (8-40); MCH 30.7 pg (25.7-33.7); MCHC 34.8 g/dl (32.0-35.9); MEAN CELL VOLUME 88.3 fl (80-96); MEAN PLT VOLUME 8.4 fl (7.5-11.1); MONO % 6.7 % (3.8-10.2); NEUT % 82.4 % (42.8-82.8); PLATELET COUNT 183 K/MM3 (134-434); RBC 5.14 M/mm3 (4.00-5.60); RDW 14.3 % (11.9-15.9); WHITE BLOOD COUNT 7.2 K/mm3 (4.0-10.0)
[2018-05-17 18:38] LABS: INR 1.08 (0.83-1.09); PROTHROMBIN TIME (PATIENT) 12.7 SEC (9.7-13.0)
[2018-05-17 18:51] LABS: ALBUMIN 4.2 g/dl (3.4-5.0); ALK PHOS 90 U/L (45-117); ANION GAP 6 MMOL/L (8-16); BILIRUBIN,TOTAL 0.3 mg/dL (0.2-1); BLOOD UREA NITROGEN 15 mg/dL (7-18); CALCIUM 9.2 mg/dL (8.5-10.1); CHLORIDE 106 mmol/L (98-107); CO2 27 mmol/L (21-32); CREATININE 1.2 mg/dL (0.55-1.3); GLUCOSE,RANDOM 94 mg/dL (74-106); POTASSIUM 3.6 mmol/L (3.5-5.1); SGOT/AST 115 U/L (15-37); SGPT/ALT 83 U/L (13-61); SODIUM 140 mmol/L (136-145); TOT PROT 7.9 g/dl (6.4-8.2)
[2018-05-17] MEDS ORDERED: SODIUM CHLORIDE 1,000 ML IV STA (20:02)
[2018-05-17] MEDS ORDERED: morphine CARPU-JECT 2 MG/1 ML DISP.SYRIN IVPUSH ONE (20:05)
[2018-05-17] MEDS ORDERED: MORPHINE SULFATE 2 MG/ML VIAL ONE ×3 (20:05→22:59)
--- NOTE | 2018-05-17 20:57 | PDOC ---
*Physical Exam - Vital Signs Last Vital Signs Temp Pulse Resp BP Pulse Ox 98.3 F 83 18 149/98 98 05/17/18 16:59 05/17/18 20:02 05/17/18 20:02 05/17/18 20:02 05/17/18 20:02 ED Treatment Course - LABORATORY CBC & Chemistry Diagram: 05/17/18 17:50 05/17/18 17:50 - ADDITIONAL ORDERS Additional order review: Laboratory Results 05/17/18 05/17/18 05/17/18 18:20 17:50 17:50 PT with INR INR Sodium 140 Potassium 3.6 Chloride 106 Carbon Dioxide 27 Anion Gap 6 L BUN 15 Creatinine 1.2 Creat Clearance w eGFR > 60 Random Glucose 94 Lactic Acid 2.4 H* Calcium 9.2 Total Bilirubin 0.3 AST 115 H ALT 83 H Alkaline Phosphatase 90 Troponin I < 0.02 Total Protein 7.9 Albumin 4.2 Blood Type B POSITIVE Antibody Screen Negative 05/17/18 17:50 PT with INR 12.70 INR 1.08 Sodium Potassium Chloride Carbon Dioxide Anion Gap BUN Creatinine Creat Clearance w eGFR Random Glucose Lactic Acid Calcium Total Bilirubin AST ALT Alkaline Phosphatase Troponin I Total Protein Albumin Blood Type Antibody Screen 05/17/18 17:50 RBC 5.14 MCV 88.3 MCHC 34.8 RDW 14.3 MPV 8.4 Neutrophils % 82.4 D Lymphocytes % 9.7 D Monocytes % 6.7 Eosinophils % 0.8 Basophils % 0.4 - Medications Given in the ED: ED Medications Discontinued Medications Generic Name Dose Route Start Last Admin Trade Name Freq PRN Reason Stop Dose Admin Morphine Sulfate 4 mg 05/17/18 17:45 05/17/18 18:10 Morphine Injection - IVPUSH 05/17/18 17:46 4 mg ONCE ONE Administration Morphine Sulfate 4 mg 05/17/18 20:05 05/17/18 20:13 Morphine Injection - IVPUSH 05/17/18 20:06 4 mg ONCE ONE Administration Medical Decision Making - Medical Decision Making 05/17/18 20:[address] Castellanos. Patient is 52M with history of multiple abdominal histories including colon resection and gastric sleeve (Arad) here today with abdominal pain. Pending labs and CT read. Patient had CT with IV contrast done as outpatient that is not available from [facility]. Lactate mildly elevated , given 1L fluids. Required morphine 4x2 for pain. Will obs for abdominal pain. Arad paged. *DC/Admit/Observation/Transfer Diagnosis at time of Disposition: Abdominal pain - Discharge Dispostion Condition at time of disposition: Stable Decision to Admit order: Yes - Referrals Referrals: John Kilgore MD [Primary Care Provider] - - Patient Instructions - Post Discharge Activity
[2018-05-17] MEDS ORDERED: MORPHINE SULFATE 2 MG/ML VIAL IVPUSH ONE (21:35)
--- NOTE | 2018-05-17 21:49 | HP ---
CHIEF COMPLAINT: severe abdominal pain after having CT scan of abdomen with contrast done today at [facility] PCP:Dr. Kilgore General Surgeon: Dr. Vivek Lee Solo Truck Driver: Unknown name of his physician HISTORY OF PRESENT ILLNESS: 52 one year old male with history of coronary artery disease(had cath in 2004, no stents), hyperlipidemia, hypertension, asthma, GERD, diverticulitis with colon resection/hernia repair in 2014 followed by subsequent hernia surgeries and gastric sleeve [place] [address] Lee. Patient reports he has been having chronic abdominal pain for the past 2-3 weeks. He was ordered an outpatient CT scan of the abdomen with contrast by his liver specialist which was done at [facility] this morning. He reports later this afternoon he developed worsening abdominal pain and distention associated with nausea and no vomiting. He denied fever, chills or diarrhea. He reported feeling shortness of breath. He denied chest pain, dizziness or palpitations. He presented to the ER for a further evaluation. Lab findings notable for a normal WBC and a lactic acid level of 2.4, ast 115, and alt 83. Abdomen xray and CT scan of adbomen without contrast demonstrated no acute findings. He is hemodynamically stable and afebrile. He was given a bolus of IV fluids. Recent Travel:Denies PAST MEDICAL HISTORY:coronary artery disease(had cath in 2004,no stents), hyperlipidemia, hypertension, asthma, GERD, diverticulitis PAST SURGICAL HISTORY:colon resection/hernia repair in 2014 followed by subsequent 3 hernia surgeries and gastric bypass sleeve surgery in 2016 Social History: Smoking:Denies Alcohol:Social intake of alcohol use Drugs: Denies Family History: Mother- breast cancer, still alive Father - from bladder cancer Allergies olmesartan [From Benicar] Allergy (Unknown, Verified 05/17/18 16:58) HOME MEDICATIONS: Home Medications Medication Instructions Recorded Omeprazole [Prilosec] 40 mg PO DAILY 08/24/14 Propranolol HCl [Inderal Xl] 60 mg PO BID 08/24/14 Acetaminophen/Caffeine/Butalb 1 tablet PO PRN PRN 08/10/17 [Fioricet -] Famotidine [Pepcid] 20 mg PO BID #60 tablet 08/11/17 Albuterol Sulfate Inhaler - 2 puff IH PRN PRN 05/17/18 [Ventolin Hfa Inhaler -] Irbesartan/Hydrochlorothiazide 1 each PO DAILY 05/17/18 [Irbesartan-Hctz 300-12.5 mg Tb] Mometasone/Formoterol [Dulera 200 2 inh IH BID 05/17/18 Mcg/5 Mcg Inhaler] REVIEW OF SYSTEMS CONSTITUTIONAL: Absent: fever, chills, diaphoresis, generalized weakness, malaise, loss of appetite, weight change HEENT: Absent: rhinorrhea, nasal congestion, throat pain, throat swelling, difficulty swallowing, mouth swelling, ear pain, eye pain, visual changes CARDIOVASCULAR: Absent: chest pain, syncope, palpitations, irregular heart rate, lightheadedness , peripheral edema RESPIRATORY: Absent: cough, shortness of breath, dyspnea with exertion, orthopnea, wheezing, stridor, hemoptysis GASTROINTESTINAL: Absent: abdominal pain, abdominal distension, nausea, vomiting, diarrhea, constipation, melena, hematochezia GENITOURINARY: Absent: dysuria, frequency, urgency, hesitancy, hematuria, flank pain, genital pain MUSCULOSKELETAL: Absent: myalgia, arthralgia, joint swelling, back pain, neck pain SKIN: Absent: rash, itching, pallor HEMATOLOGIC/IMMUNOLOGIC: Absent: easy bleeding, easy bruising, lymphadenopathy, frequent infections ENDOCRINE: Absent: unexplained weight gain, unexplained weight loss, heat intolerance, cold intolerance NEUROLOGIC: Absent: headache, focal weakness or paresthesias, dizziness, unsteady gait, seizure, mental status changes, bladder or bowel incontinence PSYCHIATRIC: Absent: anxiety, depression, suicidal or homicidal ideation, hallucinations. PHYSICAL EXAMINATION Vital Signs - 24 hr 05/17/18 05/17/18 16:59 20:02 Temperature 98.3 F Pulse Rate 83 Pulse Rate [ 83 Right Radial] Respiratory 16 18 Rate Blood Pressure 168/95 Blood Pressure 149/98 [Left Arm] O2 Sat by Pulse 100 98 Oximetry (%) GENERAL: awake, alert, and fully oriented to person place and time HEAD: normal with no signs of trauma EYES: pupils equal, round and reactive to light,sclera anicteric, conjunctiva clear EARS, NOSE, THROAT: Ears normal, nares patent, oropharynx clear without exudates. moist mucous membranes NECK: normal range of motion LUNGS: breath sounds equal, clear to auscultation bilaterally. no wheezes, and no crackles. no accessory muscle use HEART: regular rate and rhythm, normal S1 and S2 without murmur, rub or gallop ABDOMEN: large and distended , tender on light palpation with guarding MUSCULOSKELETAL: normal range of motion at all joints UPPER EXTREMITIES: 2+ pulses, warm, well-perfused. no cyanosis. no clubbing. no peripheral edema LOWER EXTREMITIES: 2+ pulses, warm, well-perfused. No calf tenderness. No peripheral edema NEUROLOGICAL: normal speech PSYCHIATRIC: cooperative. good eye contact. appropriate mood and affect SKIN: warm, dry, normal turgor, no rashes or lesions noted, normal capillary refill Laboratory Results - last 24 hr 05/17/18 05/17/18 05/17/18 17:50 17:50 17:50 WBC 7.2 RBC 5.14 Hgb 15.8 Hct 45.4 MCV 88.3 MCH 30.7 MCHC 34.8 RDW 14.3 Plt Count 183 MPV 8.4 Absolute Neuts (auto) 6.0 Neutrophils % 82.4 D Lymphocytes % 9.7 D Monocytes % 6.7 Eosinophils % 0.8 Basophils % 0.4 Nucleated RBC % 0 PT with INR 12.70 INR 1.08 Sodium 140 Potassium 3.6 Chloride 106 Carbon Dioxide 27 Anion Gap 6 L BUN 15 Creatinine 1.2 Creat Clearance w eGFR > 60 Random Glucose 94 Lactic Acid Calcium 9.2 Total Bilirubin 0.3 AST 115 H ALT 83 H Alkaline Phosphatase 90 Troponin I < 0.02 Total Protein 7.9 Albumin 4.2 Blood Type Antibody Screen 05/17/18 05/17/18 17:50 18:20 WBC RBC Hgb Hct MCV MCH MCHC RDW Plt Count MPV Absolute Neuts (auto) Neutrophils % Lymphocytes % Monocytes % Eosinophils % Basophils % Nucleated RBC % PT with INR INR Sodium Potassium Chloride Carbon Dioxide Anion Gap BUN Creatinine Creat Clearance w eGFR Random Glucose Lactic Acid 2.4 H* Calcium Total Bilirubin AST ALT Alkaline Phosphatase Troponin I Total Protein Albumin Blood Type B POSITIVE Antibody Screen Negative ASSESSMENT/PLAN: 52 one year old male with history of coronary artery disease(had cath in 2004, no stents), hyperlipidemia, hypertension, GERD, diverticulitis with colon resection/hernia repair in 2014 followed by subsequent 3 hernia surgeries and gastric sleeve surgery in 2016 who has been having chronic abdominal pain for the past 2-3 weeks. He presented with worsening abdominal pain after undergoing CT of abdomen with contrast. He is being admitting for further medical management. Abdominal Pain He had an abdomen Xray and CT scan of abdomen without contrast showing no evidence of acute findings. Keep NPO IV fluids at NS at 75 cc/hr Dr. Vivek Lee consulted -Surgeon Morphine 2mg IV as needed for severe abdominal pain Check lipase and amylase with am labs Obtain CT scan of abdomen with contrast official report from [facility]([phone]) in am Elevated Lactic Acid No evidence of leukocytosis and afebrile Repeat lactic acid in am Transaminitis He denies excessive intake of alcohol. He reports he sees a liver specialist in [facility](unable to tell me the name of physician). CT scan of abdomen w/out contrast showed no hepato/splenomegaly. Coronary Artery Disease He denies active anginal symptoms. Troponin is normal. Consider adding a baby aspirin. Not on statin therapy due to elevated LFT's. Continue with bb and arb. Hypertension SBP 140-160's. Continue propranolol, irbesartan and HCTZ. Hyperlipidemia Currently he is not on statin therapy. He has elevated LFT's. Avoid statin in this setting. FEN NPO IV fluids- NS at 75cc/hr Visit type - Emergency Visit Emergency Visit: Yes ED Registration Date: 05/17/18 Care time: The patient presented to the Emergency Department on the above date and was hospitalized for further evaluation of their emergent condition. - New Patient This patient is new to me today: Yes Date on this admission: 05/18/18 - Critical Care Critical Care patient: No
[2018-05-17] MEDS: SODIUM CHLORIDE 1,000 ML IV SCH (23:08)
[2018-05-18 03:31] VITALS: BMI 33.7
[2018-05-18] MEDS: SODIUM CHLORIDE 1,000 ML IV SCH (06:00)
[2018-05-18 07:54] LABS: HEMATOCRIT 37.8 % (35.4-49); HEMOGLOBIN 12.9 GM/dL (11.7-16.9); MCH 30.2 pg (25.7-33.7); MCHC 34.2 g/dl (32.0-35.9); MEAN CELL VOLUME 88.3 fl (80-96); MEAN PLT VOLUME 8.7 fl (7.5-11.1); PLATELET COUNT 181 K/MM3 (134-434); RBC 4.28 M/mm3 (4.00-5.60); RDW 14.5 % (11.9-15.9); WHITE BLOOD COUNT 6.5 K/mm3 (4.0-10.0)
[2018-05-18 08:19] LABS: ALBUMIN 3.3 g/dl (3.4-5.0); ALK PHOS 78 U/L (45-117); AMYLASE 69 U/L (25-115); ANION GAP 9 MMOL/L (8-16); BILIRUBIN,TOTAL 0.4 mg/dL (0.2-1); BLOOD UREA NITROGEN 11 mg/dL (7-18); CALCIUM 8.6 mg/dL (8.5-10.1); CHLORIDE 109 mmol/L (98-107); CO2 25 mmol/L (21-32); CREATININE 0.9 mg/dL (0.55-1.3); GLUCOSE,RANDOM 83 mg/dL (74-106); LIPASE 213 U/L (73-393); POTASSIUM 3.7 mmol/L (3.5-5.1); SGOT/AST 58 U/L (15-37); SGPT/ALT 99 U/L (13-61); SODIUM 143 mmol/L (136-145); TOT PROT 6.7 g/dl (6.4-8.2)
[2018-05-18 09:06] VITALS: TEMP 98.4
--- NOTE | 2018-05-18 09:47 | PN ---
Progress Note, Physician Chief Complaint: Pt lying in bed in no acute distress. Pt reports he is still having sharp abdominal pain epigastric region> throughout. Reports its better than when he came in. Denies any chest pain, sob, n/v, dysuria - Current Medication List Current Medications: Active Medications Sodium Chloride (Normal Saline -) 1,000 mls @ 75 mls/hr IV ASDIR [facility] Last Admin: 05/18/18 06:00 Dose: 75 mls/hr Pantoprazole Sodium (Protonix Iv) 40 mg IVPUSH DAILY [facility] Last Admin: 05/18/18 09:33 Dose: 40 mg Polyethylene Glycol (Miralax (For Daily Use) -) 17 gm PO DAILY [facility] - Objective Vital Signs: Vital Signs Temperature 98.4 F 05/18/18 09:05 Pulse Rate 71 05/18/18 09:05 Respiratory Rate 18 05/18/18 09:05 Blood Pressure 157/85 05/18/18 09:05 O2 Sat by Pulse Oximetry (%) 98 05/18/18 03:16 Constitutional: Yes: Well Nourished, No Distress, Calm Cardiovascular: Yes: WNL, Regular Rate and Rhythm Respiratory: Yes: WNL, Regular, CTA Bilaterally. No: Accessory Muscle Use, Rhonchi, SOB, Tachypnea, Wheezes Gastrointestinal: Yes: Normal Bowel Sounds, Soft, Abdomen, Obese, Tenderness ( epigastric> throughout). No: Distention, Vomiting Genitourinary: Yes: WNL Extremities: Yes: WNL Edema: No Neurological: Yes: WNL, Alert, Oriented Psychiatric: Yes: WNL, Alert, Oriented Labs: CBC, BMP 05/18/18 06:00 05/18/18 06:00 INR, PTT INR 1.08 (0.83-1.09) 05/17/18 17:50 Problem List - Problems (1) Abdominal pain Assessment/Plan: +ttp epigastric> throughout abdomen mild improvement since admission abd/pelvic ct w/out contrast unremarkable will obtain outpt CT w/ po and iv contrast which was done yesterday prior to admission all labs stable ua ordered miralax clear liquids Code(s): R10.9 - UNSPECIFIED ABDOMINAL PAIN Qualifiers: Abdominal location: generalized Qualified Code(s): R10.84 - Generalized abdominal pain (2) LFT elevation Assessment/Plan: chronic pt is followed by liver specialist outpt Code(s): R94.5 - ABNORMAL RESULTS OF LIVER FUNCTION STUDIES (3) Hypokalemia Assessment/Plan: repleted Code(s): E87.6 - HYPOKALEMIA
[2018-05-18] MEDS ORDERED: POLYETHYLENE GLYCOL 3350 119 GM BTL PO SCH (10:00)
[2018-05-18] MEDS ORDERED: PANTOPRAZOLE SODIUM 40 MG VIAL IVPUSH SCH (10:00)
[2018-05-18] MEDS ORDERED: oxyCODONE HCL 5 MG TABLET PO PRN (11:20)
[2018-05-18] MEDS ORDERED: POTASSIUM CHLORIDE TABS 20 MEQ TABLET.ER (FP) PO ONE (14:00)
--- NOTE | 2018-05-18 14:14 | EKG ---
Test Reason : Blood Pressure : / mmHG Vent. Rate : 090 BPM Atrial Rate : 090 BPM P-R Int : 150 ms QRS Dur : 072 ms QT Int : 336 ms P-R-T Axes : 029 010 004 degrees QTc Int : 411 ms NORMAL SINUS RHYTHM POSSIBLE LEFT ATRIAL ENLARGEMENT SEPTAL INFARCT , AGE UNDETERMINED ABNORMAL ECG WHEN COMPARED WITH ECG OF 02-FEB-2018 10:42, SEPTAL INFARCT IS NOW PRESENT NON-SPECIFIC CHANGE IN ST SEGMENT IN INFERIOR LEADS Confirmed by NATE HI MD ([id number]) on 05/18/2018 2:14:24 PM Referred By: Confirmed By:NATE HI MD
--- NOTE | 2018-05-18 14:19 | DS ---
Physical Examination Vital Signs: Vital Signs Temperature 98.4 F 05/18/18 09:05 Pulse Rate 71 05/18/18 09:05 Respiratory Rate 18 05/18/18 09:05 Blood Pressure 157/85 05/18/18 09:05 O2 Sat by Pulse Oximetry (%) 98 05/18/18 03:16 Labs: CBC, BMP 05/18/18 06:00 05/18/18 06:00 Discharge Summary Reason For Visit: ABDOMINAL PAIN Current Active Problems Abdominal pain (Acute) Hypokalemia (Acute) LFT elevation (Acute) Hospital Course: 52 year old male pmh significant for recent 08/03 gastric sleeve admitted for evaluation of abdominal pain. Abd/pelvic CT w/out contrast negative. I reviewed outpt abd/pelvis CT w/ po and iv contrast which revealed no acute pathology. Pt evaluated by bariatric surgeon and cleared for discharge. All labs stable, vitals stable. Lactic acidosis resolved. Pt reports improvement in abdominal pain. Pt tolerating regular diet. Pt is medically stable for discharge home. Outpt follow up with GI recommended. 32 minutes spent in discharge planning Condition: Improved - Instructions Diet, Activity, Other Instructions: diet, ambulate as tolerated maintain adequate hydration follow up with liver specialist and PCP Referrals: Leyda Palomino MD [Staff Physician] - 1 Week John Kilgore MD [Primary Care Provider] - 1 Week Disposition: HOME - Home Medications Comprehensive Discharge Medication List: Ambulatory Orders Omeprazole [Prilosec] 40 mg PO DAILY 08/24/14 Propranolol HCl [Inderal Xl] 60 mg PO BID 08/24/14 Acetaminophen/Caffeine/Butalb [Fioricet -] 1 tablet PO PRN PRN 08/10/17 Famotidine [Pepcid] 20 mg PO BID #60 tablet 08/11/17 Albuterol Sulfate Inhaler - [Ventolin HFA Inhaler -] 2 puff IH PRN PRN 05/17/18 Irbesartan/Hydrochlorothiazide [Irbesartan-Hctz 300-12.5 mg Tb] 1 each PO DAILY 05/17/18 Mometasone/Formoterol [Dulera 200 Mcg/5 Mcg Inhaler] 2 inh IH BID 05/17/18
--- NOTE | 2018-05-18 14:40 | CONSULT ---
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 (Headache syndrome) Cardio/Vascular: Yes: CAD, HTN, Hyperlipdemia Gastrointestinal: Yes: Diverticulosis, GERD, Other (COLON POLYPS, COLONOSCOPY 3 TO 4 YEARS A GO) Musculoskeletal: Yes: Other (chronic neck pain/ cervicalgia) - Past Surgical History Past Surgical History: Yes: Appendectomy, Bariatric Surgery (gastric sleeve), Colectomy (partial), Colonoscopy, Hernia Repair - Alcohol/Substance Use Hx Alcohol Use: No History of Substance Use: reports: None - Smoking History Smoking history: Never smoked Have you smoked in the past 12 months: No Aproximately how many cigarettes per day: 0 - Social History Usual Living Arrangement: With Spouse ADL: Independent 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 [employer] History of Recent Travel: No Home Medications - Allergies Allergies/Adverse Reactions: Allergies Allergy/AdvReac Type Severity Reaction Status Date / Time olmesartan [From Benicar] Allergy Unknown Verified 05/17/18 16:58 - Home Medications Home Medications: Ambulatory Orders Omeprazole [Prilosec] 40 mg PO DAILY 08/24/14 Propranolol HCl [Inderal Xl] 60 mg PO BID 08/24/14 Acetaminophen/Caffeine/Butalb [Fioricet -] 1 tablet PO PRN PRN 08/10/17 Famotidine [Pepcid] 20 mg PO BID #60 tablet 08/11/17 Albuterol Sulfate Inhaler - [Ventolin HFA Inhaler -] 2 puff IH PRN PRN 05/17/18 Irbesartan/Hydrochlorothiazide [Irbesartan-Hctz 300-12.5 mg Tb] 1 each PO DAILY 05/17/18 Mometasone/Formoterol [Dulera 200 Mcg/5 Mcg Inhaler] 2 inh IH BID 05/17/18 Family Disease History - Family Disease History Family Disease History: CA: Father (), Mother (diverticulitis, HTN), Other: Mother, Brother (HTN), Sister (HTN) Review of Systems - Review of Systems Constitutional: denies: Chills, Fever HENT: reports: No Symptoms Neck: reports: No Symptoms Cardiovascular: reports: No Symptoms Respiratory: reports: No Symptoms Gastrointestinal: reports: Abdominal Pain, Bloating. denies: Dysphagia Neurological: reports: No Symptoms Pain Intensity: 3 Physical Exam Vital Signs: Vital Signs Temperature 98.4 F 05/18/18 09:05 Pulse Rate 71 05/18/18 09:05 Respiratory Rate 18 05/18/18 09:05 Blood Pressure 157/85 05/18/18 09:05 O2 Sat by Pulse Oximetry (%) 98 05/18/18 03:16 Constitutional: Yes: Calm HENT: Yes: WNL Neck: Yes: WNL Cardiovascular: Yes: WNL Respiratory: Yes: Regular Gastrointestinal: Yes: Soft, Tenderness (Mild, nonspecific Left side > right). No: Distention, Tenderness, Rebound Neurological: Yes: Alert, Oriented Labs: CBC, BMP 05/18/18 06:00 05/18/18 06:00 Imaging - Results Cat Scan: Report Reviewed, Image Reviewed Problem List - Problems (1) Abdominal pain Code(s): R10.9 - UNSPECIFIED ABDOMINAL PAIN Qualifiers: Abdominal location: generalized Qualified Code(s): R10.84 - Generalized abdominal pain Assessment/Plan CT A/P performed with PO contrast as an outpatient recently as CT A/P without PO contrast done in ER show no acute pathology Pain not due to gastric sleeve Likely colonic in origin Labs WNL Tolerating diet Being discharged by primary team Recommend follow up with GI for possible colonoscopy No surgical intervention at this time
[2018-05-18 15:32] VITALS: BP 134/84; PULSE 66
== END 2018-05-18 17:53 | disposition home or self-care (01) ==
LOC: JER 16:56 → JERBED 20:57 → J8W 05-18 02:32
PROVIDERS: ADMIT Internal Medicine; ATTEND Nurse Practitioner Family
PROC: 3E033NZ Introduction of Analgesics, Hypnotics, Sedatives into Peripheral Vein, Percutaneous Approach (ICD-10-PCS; principal; 2018-05-17)
PROC: 3E0337Z Introduction of Electrolytic and Water Balance Substance into Peripheral Vein, Percutaneous Approach (ICD-10-PCS; 2018-05-17)
PROC: 3E033GC Introduction of Other Therapeutic Substance into Peripheral Vein, Percutaneous Approach (ICD-10-PCS; 2018-05-17)
DX: R10.84 Generalized abdominal pain (principal); E87.6 Hypokalemia; R94.5 Abnormal results of liver function studies; I10 Essential (primary) hypertension; I25.10 Atherosclerotic heart disease of native coronary artery without angina pectoris; E78.5 Hyperlipidemia, unspecified; K21.9 Gastro-esophageal reflux disease without esophagitis; R74.0 Nonspecific elevation of levels of transaminase and lactic acid dehydrogenase [LDH]; E66.9 Obesity, unspecified; Z68.33 Body mass index [BMI] 33.0-33.9, adult; Z98.84 Bariatric surgery status; Z90.49 Acquired absence of other specified parts of digestive tract
CPT/HCPCS: 36415; 74019-TC-FY; 74176-TC; 80053; 82150; 83605; 83690; 84484; 85025; 85027; 85610; 86850; 86900; 86901; 93005; 93010; 96361; 96374; 96375; 96376; 99283-25; G0378; J7030

== ENCOUNTER 2019-01-05 07:06 | Day surgery (SDC) | payer OTHER ==
[2019-01-03 17:50] VITALS: BMI 33.6
[2019-01-05] MEDS ORDERED: BUPIVACAINE HCL/PF 0.25% (2.5MG/ML) 10 ML VIAL ONE (07:31)
[2019-01-05] MEDS ORDERED: methylPREDNISolone ACET (DEPO) 80 MG/1 ML VIAL ONE (07:43)
--- NOTE | 2019-01-05 07:59 | HP ---
Admitting History and Physical - Admission Chief Complaint: Chronic Right groin pain s/p multiple hernia repairs. 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) Cardiovascular: Yes: CAD, HTN, Hyperlipdemia Gastrointestinal: Yes: Diverticulosis, GERD, Other (COLON POLYPS, COLONOSCOPY 3 TO 4 YEARS A GO) Musculoskeletal: Yes: Other (chronic neck pain/ cervicalgia) - Past Surgical History Past Surgical History: Yes: Appendectomy, Bariatric Surgery (gastric sleeve), Colectomy (partial), Colonoscopy, Hernia Repair - Smoking History Smoking history: Never smoked Have you smoked in the past 12 months: No Aproximately how many cigarettes per day: 0 - Alcohol/Substance Use Hx Alcohol Use: Yes (OCCASION) History of Substance Use: reports: None - Social History ADL: Independent 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 [employer] History of Recent Travel: No Home Medications - Allergies Allergies/Adverse Reactions: Allergies Allergy/AdvReac Type Severity Reaction Status Date / Time [facility] Allergy Severe Verified 01/05/19 07:43 - Home Medications Home Medications: Ambulatory Orders Omeprazole [Prilosec] 40 mg PO HS 08/24/14 propRANOLol HCL [Inderal Xl] 60 mg PO BID 08/24/14 Famotidine [Pepcid] 20 mg PO BID #60 tablet 08/11/17 Irbesartan/Hydrochlorothiazide [Irbesartan-Hctz 300-12.5 mg Tb] 1 each PO DAILY 05/17/18 Gabapentin 600 mg PO TID 01/03/19 Nortriptyline HCl [Pamelor -] 25 mg PO HS 01/03/19 Sumatriptan Succinate 100 mg PO PRN PRN 01/05/19 Physical Examination Vital Signs: Vital Signs Temperature 98.8 F 01/05/19 07:41 Pulse Rate 57 L 01/05/19 07:41 Respiratory Rate 20 01/05/19 07:41 Blood Pressure 141/86 01/05/19 07:41 O2 Sat by Pulse Oximetry (%) 100 01/05/19 07:38
[2019-01-05] MEDS ORDERED: LIDOCAINE HCL 2% (20ML MULTI-DOSE VIAL) NR ONE (08:47)
[2019-01-05] MEDS ORDERED: ONDANSETRON 4 MG/2 ML VIAL IVPUSH PRN (08:47)
[2019-01-05] MEDS ORDERED: oxyCODONE HCL 5 MG TABLET PO PRN ×2 (08:47)
[2019-01-05] MEDS ORDERED: LACTATED RINGERS SOLUTION 1,000 ML IV SCH (09:00)
[2019-01-05] MEDS ORDERED: DEXMEDETOMIDINE HCL 200 MCG/2 ML IVPB ONE (09:03)
[2019-01-05] MEDS ORDERED: MIDAZOLAM HCL 2 MG/2 ML SINGLE DOSE VIAL ONE ×2 (09:06→10:44)
[2019-01-05] MEDS ORDERED: ceFAZolin SODIUM 1 GM VIAL IVPB ONE (09:15)
[2019-01-05] MEDS ORDERED: ceFAZolin SODIUM 1 GM VIAL ONE (09:16)
[2019-01-05] MEDS ORDERED: LIDOCAINE HCL 2% (50ML VIAL) NR ONE ×2 (09:35)
[2019-01-05] MEDS ORDERED: LIDOCAINE HCL 1%, 10 MG/ML (50 mL VIAL) IJ ONE ×2 (09:35)
[2019-01-05] MEDS ORDERED: ACETAMINOPHEN 1000 MG/100 ML VIAL (NON FORMULARY) IVPB ONE (12:21)
[2019-01-05] MEDS ORDERED: ACETAMINOPHEN INJECTION 100 ML IVPB ONE (12:30)
[2019-01-05] MEDS ORDERED: oxyCODONE HCL 5 MG TABLET ONE (14:15)
[2019-01-05 14:26] VITALS: TEMP 98
[2019-01-05 16:41] VITALS: BP 120/71; PULSE 72
--- NOTE | 2019-01-24 19:03 | PROC ---
Procedure Note Procedure: Procedure was performed on 01/05/19 DORSAL ROOT GANGLION STIMULATOR TRIAL INDICATIONS: 1. Causalgia. 2. Lower extremity pain. EXAMINATION: Temporary implantation of epidural electrode. DISCUSSION: The patient was prepped and draped in usual sterile fashion while in the prone position. Antibiotics were administered by IV infusion preoperatively. 1% Lidocaine was used to provide soft tissue anesthesia. 2% Lidocaine was used to provide soft tissue anesthesia over the lamina at the two levels. The patient was sedated using Versed and Fentanyl prior to and during the procedure provided by [email or web address]. Please refer to anesthesia report. The patient remained fairly sedated and conversed throughout the procedure. Under image-intensifier control, a #14 gauge 4 inch Tuhoy needle was guided successfully into the epidural space at T12-L1 level employing a left paraspinous interlaminar approach and loss of resistance technique. Following needle position verification, a compact [employer] Judes/Abbot Linear DRG Lead with 4 electrodes was passed through the barrel of the #14 gauge needle and guided fluoroscopically into the neural foramen T12 level on the right side. A tension loop was then created using a simultaneous retraction/entry technique of the cannula and electrode, respectively. Under image-intensifier control, a #14 gauge 4 inch Tuhoy needle was guided successfully into the epidural space at L1- L2 level employing a right paraspinous interlaminar approach and loss of resistance technique. Following needle position verification, a compact St. Judes/Abbot Linear DRG Lead with 4 electrodes was passed through the barrel of the #14 gauge needle and guided fluoroscopically into the neural foramen L1 level on the right side. A tension loop was then created using a simultaneous retraction/entry technique of the cannula and electrode, respectively. Following testing stimulation, the #14 gauge Touhy needle (from the percutaneous electrodes) were removed under fluoroscopic control to ensure against dislodgement of the electrode position. The lead was then connected to the OR cable, with the lead stylet in place by sliding the proximal end of the lead, with stylet, into the open port on the OR cable connector until the lead stopped. The locking lever was then slid to 1 , the locked position. The OR cable was then connected to the triall stimulator socket. Test stimulation disclosed stimulation pattern confirming to patients pain pattern The electrode was then fastened to the skin via Steri-strips, mastazol or alternative skin adhesive , and tegaderm dressing. The 2 electrode position of lead 1 at the conclusion of the procedure was right T12 neural foramen The 2 electrode position of lead 2 at the conclusion of the procedure was right L1 neural foramen. The procedure was performed on 01/05/19
== END 2019-01-05 15:20 | disposition home or self-care (01) ==
LOC: JASU-SURG 07:06
PROVIDERS: ATTEND Pain Medicine Pain Medicine
PROC: 00HU3MZ Insertion of Neurostimulator Lead into Spinal Canal, Percutaneous Approach (ICD-10-PCS; principal; 2019-01-05 08:30)
DX: M54.2 Cervicalgia (principal); G57.70 Causalgia of unspecified lower limb; I10 Essential (primary) hypertension; I25.10 Atherosclerotic heart disease of native coronary artery without angina pectoris; E78.5 Hyperlipidemia, unspecified; Z98.84 Bariatric surgery status; K57.30 Diverticulosis of large intestine without perforation or abscess without bleeding; K21.9 Gastro-esophageal reflux disease without esophagitis
CPT/HCPCS: 63650; C1778; 76000-TC-FY; 94760; J0131

== ENCOUNTER 2019-02-06 09:38 | Day surgery (SDC) | payer OTHER ==
[2019-02-05 13:23] VITALS: BMI 34.3
[2019-02-06] MEDS ORDERED: LIDOCAINE 1%-EPI 1:100,000 30 ML MDV IJ ONE (11:35)
[2019-02-06] MEDS ORDERED: GENTAMICIN SO4 80 MG/2 ML VIAL ONE (11:35)
[2019-02-06] MEDS ORDERED: THROMBIN (BOVINE) 20,000 UNIT VIAL TP ONE (11:35)
[2019-02-06] MEDS ORDERED: SODIUM CHLORIDE 0.9% P/F 10 ML VIAL IJ ONE ×2 (11:40)
[2019-02-06] MEDS ORDERED: MIDAZOLAM HCL 2 MG/2 ML SINGLE DOSE VIAL ONE ×2 (11:43→11:44)
[2019-02-06] MEDS ORDERED: fentaNYL CITRATE 250 MCG/5 ML VIAL ONE (11:44)
[2019-02-06] MEDS ORDERED: PROPOFOL 20 ML ONE (12:24)
[2019-02-06] MEDS ORDERED: ceFAZolin SODIUM 1 GM VIAL IVPB ONE (12:40)
[2019-02-06] MEDS ORDERED: LIDOCAINE 1%/EPI 1:100000 (50 ML MULTI DOSE VIAL) INF ONE (12:48)
[2019-02-06] MEDS ORDERED: LIDOCAINE HCL 1%, 10 MG/ML (20ML VIAL) ONE (12:59)
[2019-02-06] MEDS ORDERED: LIDOCAINE HCL 2% (20ML MULTI-DOSE VIAL) NR ONE (13:01)
[2019-02-06] MEDS ORDERED: LIDOCAINE HCL 1%, 10 MG/ML (20ML VIAL) INF ONE (13:05)
[2019-02-06] MEDS ORDERED: DEXAMETHASONE SOD PHOSPHATE 4 MG/1 ML VIAL ONE (14:26)
[2019-02-06] MEDS ORDERED: NEOSTIGMINE METHYLSULFATE 0.5 MG/1 ML - 10 ML MDV ONE (14:26)
[2019-02-06] MEDS ORDERED: ONDANSETRON 4 MG/2 ML VIAL ONE (14:26)
[2019-02-06] MEDS ORDERED: LIDOCAINE HCL 2% JELLY (5 ML/TUBE) ONE (14:26)
[2019-02-06] MEDS ORDERED: GLYCOPYRROLATE 0.2 MG/1 ML VIAL ONE (14:26)
[2019-02-06] MEDS ORDERED: LIDOCAINE HCL/PF 2% SDV 5ML VIAL ONE (14:26)
[2019-02-06] MEDS ORDERED: ONDANSETRON 4 MG/2 ML VIAL IVPUSH PRN (15:44)
[2019-02-06] MEDS ORDERED: oxyCODONE HCL 5 MG TABLET PO PRN (15:44)
[2019-02-06] MEDS ORDERED: PROMETHAZINE HCL 25 MG/1 ML VIAL IVPUSH PRN (15:44)
[2019-02-06] MEDS ORDERED: LACTATED RINGERS SOLUTION 1,000 ML IV SCH (15:45)
[2019-02-06] MEDS ORDERED: oxyCODONE HCL 5 MG TABLET ONE (17:23)
[2019-02-06] MEDS ORDERED: oxyCODONE HCL 5 MG TABLET PO ONE (17:25)
[2019-02-06 17:29] VITALS: TEMP 97.7
[2019-02-06 18:26] VITALS: BP 127/81; PULSE 50
== END 2019-02-06 18:25 | disposition home or self-care (01) ==
LOC: JASUSAT 09:38 → EDSTATUS 14:30 → JASUSAT 18:25
PROVIDERS: ATTEND Neurological Surgery
PROC: 0JH Subcutaneous Tissue and Fascia, Insertion (ICD-10-PCS; 2019-02-06)
PROC: 00HV0MZ Insertion of Neurostimulator Lead into Spinal Cord, Open Approach (ICD-10-PCS; 2019-02-06)
PROC: 0JH Subcutaneous Tissue and Fascia, Insertion (ICD-10-PCS; principal; 2019-02-06 14:00)
DX: G89.29 Other chronic pain (principal); R10.31 Right lower quadrant pain; R10.813 Right lower quadrant abdominal tenderness
CPT/HCPCS: 63650; 63685; L8679; 76000-TC-FY; 86850; 86900; 86901; 94760